=== PATIENT | female | born 1970 | race African-American/Black ===

== ENCOUNTER 2016-05-31 15:17 | Emergency (ER) | payer OTHER ==
[2016-05-31 15:28] VITALS: BMI 26.6
[2016-05-31] MEDS ORDERED: morphine CARPU-JECT 4 MG/1 ML DISP.SYRIN IVPUSH ONE (17:24)
[2016-05-31] MEDS ORDERED: METOCLOPRAMIDE HCL INJECTION 10 MG/2 ML VIAL IVPB ONE (17:24)
[2016-05-31] MEDS ORDERED: METOCLOPRAMIDE HCL INJECTION 10 MG/2 ML VIAL ONE (17:30)
[2016-05-31] MEDS ORDERED: morphine CARPU-JECT 4 MG/1 ML DISP.SYRIN ONE (17:30)
--- NOTE | 2016-05-31 17:42 | PDOC ---
History of Present Illness - History of Present Illness Initial Comments: 05/31/16 18:00 The patient is a 45 year old female with a significant past medical history of asthma, coronary disease, angina, myocardial infarction, COPD, hypertension, diabetes, chronic pain secondary joint pains and surgeries, anxiety and depression who presents to the emergency department for multiple complaints today. The patient states she was recently admitted for anxiety at [facility] for approximately 3 weeks and was discharged on May 23. The patient reports that she has been off her Klonopin medication since July 2015. At that time, the patient states she was admitted for self-harm in the setting of overdose with Seroquel and Klonopin. Since then, her psychiatrist has been hesitant about giving her benzodiazepines. The patient states that since she had left the hospital, she has been having numerous complaints including left sided migraine headaches, generalized abdominal pain, general malaise, and increased anxiety. The patients friend states that the patient has had these symptoms for the last several months since she has been discontinued off her benzodiazepines. However, the patient reports her symptoms are worsening which is why she came to the ER today. She also reports malodorous urine and white discharge from her vagina today. She denies chest pain, shortness of breath, headache and dizziness. She denies fever, diarrhea and constipation. She denies dysuria, frequency, urgency and hematuria. Allergies: levofloxacin, aripiprazole, buspirone Past surgical history: left oophorectomy Social history: reports former tobacco use (2 months) and former illicit drig use (over a year) PCP - Dr. Efe Rich <Xiao Lamb - Last Filed: 05/31/16 18:48> - General History Source: Patient, Friend, Old Records Exam Limitations: No Limitations <Andres Salinas - Last Filed: 05/31/16 22:42> - General Chief Complaint: Pain Stated Complaint: ABD PAIN Time Seen by Provider: 05/31/16 16:49 Past History <Xiao Lamb - Last Filed: 05/31/16 18:48> - Past Medical History Anemia: No Asthma: Yes (Pt is on MDI) Cancer: No Cardiac Disorders: Yes (CAD, [place], [place], TACHYCARDIA) CVA: No COPD: Yes CHF: No Dementia: No Diabetes: Yes (Type II) Dialysis: No GI Disorders: No Disorders: No HTN: Yes Hypercholesterolemia: Yes HIV: No Kidney Stones: No Liver Disease: No Suicide Attempt (Hx): No Seizures: No Thyroid Disease: No - Surgical History Abdominal Surgery: No Appendectomy: No Cardiac Surgery: No Cholecystectomy: No Lung Surgery: No Neurologic Surgery: No Orthopedic Surgery: Yes (right knee replacement 06/27/12 [facility],[employer] [facility]) - Reproductive History PID: No - Psycho/Social/Smoking Cessation Hx Anxiety: No Suicidal Ideation: No Smoking Status: Yes Smoking History: Current some day smoker Have you smoked in the past 12 months: Yes Number of Cigarettes Smoked Daily: 3 If you are a former smoker, when did you quit?: 1 MO AGO Cigars Per Day: 0 Information on smoking cessation initiated: No 'Breaking Loose' booklet given: 09/09/13 Hx Alcohol Use: No Drug/Substance Use Hx: No Substance Use Type: None Hx Substance Use Treatment: Yes <Andres Salinas - Last Filed: 05/31/16 22:42> - Past Medical History Allergies/Adverse Reactions: Allergies Allergy/AdvReac Type Severity Reaction Status Date / Time levofloxacin [From Levaquin] Allergy Intermediate Rash Verified 05/31/16 15:28 aripiprazole [From Abilify] Allergy Mild Itching Verified 05/31/16 15:28 buspirone HCl [From BuSpar] Allergy Mild Itching Verified 05/31/16 15:28 medroxyprogesterone acetate Allergy Mild Itching Verified 05/31/16 15:28 [From Provera] trazodone Allergy Mild Itching Verified 05/31/16 15:28 ziprasidone HCl [From Geodon] Allergy Mild Itching Verified 05/31/16 15:28 ziprasidone mesylate Allergy Mild Itching Verified 05/31/16 15:28 [From Geodon] losartan potassium AdvReac Severe Elevated Verified 05/31/16 15:28 [From Cozaar] Blood Pressure bupropion HCl AdvReac Verified 05/31/16 15:29 [From Wellbutrin] Home Medications: Ambulatory Orders Ibuprofen [Motrin -] 600 mg PO QID #30 tablet 11/19/12 Multivitamin [Multivitamins] 1 each PO DAILY 11/19/12 Nitroglycerin Sublingual [Nitrostat -] 0.4 mg SL PRN PRN #0 tab 09/17/13 Insulin NPL/Insulin Lispro [Humalog Mix 75-25 Pen] 10 unit SQ HS 09/09/13 Insulin NPL/Insulin Lispro [Humalog Mix 75-25 Pen] 25 unit SQ AM 09/09/13 Aspirin Coated [Ecotrin -] 81 mg PO DAILY #30 tablet.ec 09/13/13 Loratadine [Claritin -] 10 mg PO DAILY #30 09/13/13 Pantoprazole Sodium [Protonix -] 40 mg PO DAILY #30 tablet.ec 09/13/13 Albuterol Sulfate Inhaler - [Ventolin HFA Inhaler -] 1 - 2 inh PO QID PRN Carvedilol 12.5 mg PO BID 05/31/16 Diltiazem Cd [Cardizem Cd -] 360 mg PO DAILY 05/31/16 Hydroxyzine Pamoate [Vistaril -] 50 mg PO TID 05/31/16 Metformin HCl [Glucophage] 500 mg PO QID 05/31/16 Oxycodone HCl/Acetaminophen [Percocet 10-325 mg Tablet] 1 each PO DAILY Quetiapine Fumarate [Seroquel -] 200 mg PO TID 05/31/16 Sertraline HCl [Zoloft -] 75 mg PO DAILY 05/31/16 Review of Systems - Review of Systems Able to Perform ROS?: Yes Comments:: 05/31/16 18:09 GENERAL/CONSTITUTIONAL: No fever or chills. No weakness. HEAD, EYES, EARS, NOSE AND THROAT: No change in vision. No ear pain or discharge. No sore throat. CARDIOVASCULAR: No chest pain or shortness of breath. RESPIRATORY: No cough, wheezing, or hemoptysis. GASTROINTESTINAL: (+) abdominal pain, nausea and vomiting. No diarrhea or constipation. GENITOURINARY: No dysuria, frequency, or change in urination. MUSCULOSKELETAL: No joint or muscle swelling or pain. No neck or back pain. SKIN: No rash NEUROLOGIC: (+) headache, No vertigo, loss of consciousness, or change in strength/sensation. ENDOCRINE: No increased thirst. No abnormal weight change. HEMATOLOGIC/LYMPHATIC: No anemia, easy bleeding, or history of blood clots. ALLERGIC/IMMUNOLOGIC: No hives or skin allergy. <Xiao Lamb - Last Filed: 05/31/16 18:48> *Physical Exam - Vital Signs Last Vital Signs Temp Pulse Resp BP Pulse Ox 83 20 155/46 99 05/31/16 15:26 05/31/16 15:26 05/31/16 15:26 05/31/16 15:26 - Physical Exam Comments: 05/31/16 18:10 GENERAL: Awake, alert, and fully oriented, in no acute distress HEAD: No signs of trauma EYES: PERRLA, EOMI, sclera anicteric, conjunctiva clear ENT: Auricles normal inspection, hearing grossly normal, nares patent, oropharynx clear without exudates. Moist mucosa NECK: Normal ROM, supple, no lymphadenopathy, JVD, or masses LUNGS: Breath sounds equal, clear to auscultation bilaterally. No wheezes, and no crackles HEART: Regular rate and rhythm, normal S1 and S2, no murmurs, rubs or gallops ABDOMEN: (+) suprapubic tenderness to palpation. Soft, normoactive bowel sounds. No guarding, no rebound. No masses EXTREMITIES: Normal range of motion, no edema. No clubbing or cyanosis. No cords, erythema, or tenderness NEUROLOGICAL: Cranial nerves II-XII intact. Normal speech, normal gait. Sensation intact in upper and lower extremities. 5/5 motor strength in upper and lower extremities. No pronator drift. Finger to nose intact. Rapid alternations intact. SKIN: Warm, Dry, normal turgor, no rashes or lesions noted. PELVIC: (+) white cottage-like discharge in vaginal vault. <Xiao Lamb - Last Filed: 05/31/16 18:48> - Vital Signs Last Vital Signs Temp Pulse Resp BP Pulse Ox 83 20 155/46 99 05/31/16 15:26 05/31/16 15:26 05/31/16 15:26 05/31/16 15:26 <Andres Salinas - Last Filed: 05/31/16 22:42> Heart Score/ECG Review - ECG Intrepretation Comment:: 05/31/16 18:49 ECG was read by Dr. Salinas at 17:47 Impression: Normal Sinus Rhythm Vent. Rate: 78 bpm NV Interval: 182 ms QTc: 446 ms <Xiao Lamb - Last Filed: 05/31/16 18:48> #1 ECG reviewed & interpreted by me at: 17:45 05/31/16 18:24 NSR 78, no std/dee, normal axis, normal intervals, QTC 446 msec <Andres Salinas - Last Filed: 05/31/16 22:42> ED Treatment Course - LABORATORY CBC & Chemistry Diagram: 05/31/16 17:15 05/31/16 17:15 - Medications Given in the ED: ED Medications Discontinued Medications Generic Name Dose Route Start Last Admin Trade Name Sidra PRN Reason Stop Dose Admin Metoclopramide HCl 10 mg 05/31/16 17:24 05/31/16 17:52 Reglan Injection - IVPB 05/31/16 17:25 10 mg ONCE ONE Administration Morphine Sulfate 4 mg 05/31/16 17:24 05/31/16 17:52 Morphine Injection - IVPUSH 05/31/16 17:25 4 mg ONCE ONE Administration <Xiao Lamb - Last Filed: 05/31/16 18:48> - LABORATORY CBC & Chemistry Diagram: 05/31/16 17:15 05/31/16 19:48 - RADIOLOGY Radiology Studies Ordered: Category Date Time Status ABDOMEN & PELVIS CT WITH CONTR [CT] Stat CT Scan 05/31/16 17:[address] WITHOUT CONTRAST [CT] Stat CT Scan 05/31/16 17:23 Ordered <Andres Salinas - Last Filed: 05/31/16 22:42> Medical Decision Making - Medical Decision Making 05/31/16 17:41 A portion of this note was documented by scribe services under my direction. I have reviewed the details of the note, within reason, and agree with the documentation with the following case summary and management plan written by me. Patient treated in the ED. Nursing notes are reviewed and incorporated into the medical decision-making. Vital signs reviewed. Peripheral IV access obtained by the nurse, laboratory studies are drawn and sent, reviewed and interpreted by myself. Vital Signs Temp Pulse Resp BP Pulse Ox 83 20 155/46 99 05/31/16 15:26 05/31/16 15:26 05/31/16 15:26 05/31/16 15:26 45 year old female with past medical history of asthma, coronary disease, angina , myocardial infarction, COPD, hypertension, diabetes, chronic pain secondary joint pains and surgeries, anxiety and depression presents to the emergency department for multiple complaints. The patient was recently admitted at [facility] for approximately 3 weeks and was discharged on May 23. She was admitted for anxiety. Patient reports that she has been off her Klonopin medication since July 2015. At that time, the patient was admitted for self-harm in the setting of overdose with Seroquel and Klonopin. Since then , her psychiatrist has been hesitant about giving her benzodiazepines. During her admission at [facility], the patient reported he had was not given benzos. Since she had left the hospital, the patient has been having numerous complaints including migrainous-like headaches, generalized abdominal pain, general malaise, anxiety. The patient friend states that the patient has had these symptoms for the last several months since she has been discontinued off her benzodiazepines. However, the patient's symptoms are worsening which is why she came to the ER today. The only new findings is that the patient is having lower abdominal discomfort in the setting of whitish cottage vaginal discharge which she believes is a yeast infection. I suspect that the patient's symptoms are probably likely secondary to anxiety. She admits that the symptoms have resulted since she was discontinued off her benzodiazepines. We'll however, investigate with a CAT scan given the severity of pain in her lower abdomen. The patient may also have a migraine given the headache, however, we'll obtain head CT given the patient reports somewhat different nature. We'll obtain labs and treat symptoms. We'll treat whitish vaginal discharge with fluconazole. Ultimately, the workup is negative, I suspect that this is likely anxiety driven. We'll discuss option treatments for her. 05/31/16 22:40 CAT scan of the head is unremarkable. CT scan resulted. Ileus but no other acute findings. CBC, BMP 05/31/16 17:15 05/31/16 19:48 CMP Sodium 140 mmol/L (136-145) 05/31/16 19:48 Potassium 4.0 mmol/L (3.5-5.1) 05/31/16 19:48 Chloride 101 mmol/L (98-107) 05/31/16 19:48 Carbon Dioxide 29 mmol/L (21-32) 05/31/16 19:48 Anion Gap 10 (8-16) 05/31/16 19:48 BUN 12 mg/dL (7-18) D 05/31/16 19:48 Creatinine 0.7 mg/dL (0.55-1.02) 05/31/16 19:48 Creat Clearance w eGFR > 60 (>60) 05/31/16 19:48 Random Glucose 138 mg/dL (74-106) H D 05/31/16 19:48 Calcium 8.7 mg/dL (8.5-10.1) 05/31/16 19:48 Total Bilirubin 0.2 mg/dL (0.2-1.0) 05/31/16 19:48 AST 11 U/L (15-37) L D 05/31/16 19:48 ALT 24 U/L (12-78) 05/31/16 19:48 Alkaline Phosphatase 84 U/L (45-117) 05/31/16 19:48 Creatine Kinase 55 IU/L (26-192) 05/31/16 19:48 Troponin I < 0.02 ng/ml (0.00-0.05) 05/31/16 19:48 Total Protein 7.6 g/dl (6.4-8.2) 05/31/16 19:48 Albumin 3.7 g/dl (3.4-5.0) 05/31/16 19:48 Lipase 57 U/L (73-393) L 05/31/16 19:48 Urine Test Results Urine Color Ltyellow 05/31/16 17:15 Urine Appearance Clear 05/31/16 17:15 Urine pH 5.0 (5.0-8.0) 05/31/16 17:15 Ur Specific [place] 1.021 (1.001-1.035) 05/31/16 17:15 Urine Protein Negative (NEGATIVE) 05/31/16 17:15 Urine Glucose (UA) 2+ (NEGATIVE) H 05/31/16 17:15 Urine Ketones Negative (NEGATIVE) 05/31/16 17:15 Urine Blood Negative (NEGATIVE) 05/31/16 17:15 Urine Nitrite Negative (NEGATIVE) 05/31/16 17:15 Urine Bilirubin Negative (NEGATIVE) 05/31/16 17:15 Ur Leukocyte Esterase Trace (NEGATIVE) H 05/31/16 17:15 Urine RBC 1 /hpf (0-3) 05/31/16 17:15 Urine WBC 3 /hpf (3-5) 05/31/16 17:15 Ur Epithelial Cells Rare /hpf (FEW) 05/31/16 17:15 Urine Mucus Rare 05/31/16 17:15 Labs and UA reviewed. I had reassurred the patient and the patient reports with the reassurance that she feels completely resolved. She has no symptoms and feels quite relieved. Again, I suspect that this was anxiety driven. I will discharge the patient and have her follow up with psychiatry. The patient is satisfied with her care and feels well to go home. I discussed the physical exam findings, ancillary test results and final diagnoses with the patient. I answered all of the patient's questions. The patient was satisfied with the care received and felt comfortable with the discharge plan and treatment plan. The patient will call their primary care physician within 24 hours to arrange follow-up and will return to the Emergency Department with any new, persistant or worsening symptoms. <Andres Salinas - Last Filed: 05/31/16 22:42> *DC/Admit/Observation/Transfer - Attestations Scribe Attestion: 05/31/16 18:12 Documentation prepared by Xiao Lamb, acting as medical physiologist for Andres Salinas MD, MD <Xiao Lamb - Last Filed: 05/31/16 18:48> - Discharge Dispostion Admit: No <Andres Salinas - Last Filed: 05/31/16 22:42> Diagnosis at time of Disposition: Anxiety - Discharge Dispostion Disposition: HOME Condition at time of disposition: Good - Referrals Referrals: Efe Rich MD [Primary Care Provider] - Antonette Presley MD [Staff Physician] - - Patient Instructions Printed Discharge Instructions: DI for Anxiety -- Adult, Anxiety and Panic Attacks (Alternative Therapy), Generalized Anxiety Disorder, Yoga May Help Reduce Anxiety and Stress Additional Instructions: Your workup here in the ED is unremarkable. Please make an appointment with a psychiatrist. Call and schedule an appointment. It was a pleasure meeting you, please feel better!
[2016-05-31 17:57] LABS: BASOPHIL 1.3 % (0-2.0); MCH 27.6 pg (25.7-33.7); MCHC 32.2 g/dl (32.0-36.0); MEAN CELL VOLUME 85.6 fl (80-96); MEAN PLT VOLUME 7.3 fl (7.5-11.1); NEUTROPHILS 47.4 % (42.8-82.8); PLATELET COUNT 434 K/MM3 (134-434); RDW 13.2 % (11.6-15.6); WHITE BLOOD COUNT 11.9 K/mm3 (4.0-10.0)
[2016-05-31 18:10] LABS: INR 1.14 (0.82-1.09); PROTHROMBIN TIME (PATIENT) 12.6 SEC (9.98-11.88); URINE APPEARANCE CLEAR; URINE BILIRUBIN NEGATIVE (NEGATIVE); URINE BLOOD NEGATIVE (NEGATIVE); URINE COLOR LTYELLOW; URINE GLUCOSE (UA) 2+ (NEGATIVE); URINE KETONE NEGATIVE (NEGATIVE); URINE NITRITE NEGATIVE (NEGATIVE); URINE PROTEIN NEGATIVE (NEGATIVE); URINE UROBILINOGEN NEGATIVE E.U./dl (0.2-1.0)
[2016-05-31 18:11] LABS: URINE LEUK ESTERASE TRACE (NEGATIVE)
[2016-05-31 18:13] LABS: ACTIVATED PTT 34.6 SECONDS (26.9-34.4); URINE HYALINE CAST 3 /lpf; URINE MUCUS RARE; URINE RBC 1 /hpf (0-3); URINE WBC 3 /hpf (3-5)
[2016-05-31] MEDS ORDERED: FLUCONAZOLE 50 MG TABLET PO ONE (19:16)
[2016-05-31] MEDS ORDERED: FLUCONAZOLE 100 MG TABLET (UD) ONE (19:42)
[2016-05-31 20:03] VITALS: BP 140/70; PULSE 68
[2016-05-31 20:22] LABS: ALBUMIN 3.7 g/dl (3.4-5.0); ANION GAP 10 (8-16); BILIRUBIN,TOTAL 0.2 mg/dL (0.2-1.0); CALCIUM 8.7 mg/dL (8.5-10.1); CO2 29 mmol/L (21-32); CREATININE 0.7 mg/dL (0.55-1.02); GLUCOSE,RANDOM 138 mg/dL (74-106); SGOT/AST 11 U/L (15-37); SGPT/ALT 24 U/L (12-78); TOT PROT 7.6 g/dl (6.4-8.2)
[2016-05-31 20:25] LABS: ALK PHOS 84 U/L (45-117); TROPONIN I < 0.02 ng/ml (0.00-0.05)
--- NOTE | 2016-06-01 16:33 | EKG ---
Test Reason : Blood Pressure : / mmHG Vent. Rate : 078 BPM Atrial Rate : 078 BPM P-R Int : 182 ms QRS Dur : 080 ms QT Int : 392 ms P-R-T Axes : 046 061 060 degrees QTc Int : 446 ms NORMAL SINUS RHYTHM NORMAL ECG NO PREVIOUS ECGS AVAILABLE Confirmed by ELISABETH HECK, DINORA ([id number]) on 06/01/2016 4:32:56 PM Referred By: Confirmed By:DINORA BARBER MD
== END 2016-05-31 22:48 | disposition home or self-care (01) ==
LOC: JER 15:17
PROC: 3E033NZ Introduction of Analgesics, Hypnotics, Sedatives into Peripheral Vein, Percutaneous Approach (ICD-10-PCS; principal; 2016-05-31)
PROC: 3E033GC Introduction of Other Therapeutic Substance into Peripheral Vein, Percutaneous Approach (ICD-10-PCS; 2016-05-31)
DX: F41.9 Anxiety disorder, unspecified (principal); I25.119 Atherosclerotic heart disease of native coronary artery with unspecified angina pectoris; I10 Essential (primary) hypertension; F17.210 Nicotine dependence, cigarettes, uncomplicated; I25.2 Old myocardial infarction; E11.9 Type 2 diabetes mellitus without complications; Z79.4 Long term (current) use of insulin; E78.00 Pure hypercholesterolemia, unspecified; J44.9 Chronic obstructive pulmonary disease, unspecified
CPT/HCPCS: 36415; 70450-TC; 74177-TC; 80053; 81003; 81015; 82550; 83690; 84484; 84703; 85025; 85610; 85730; 87086; 93005; 93010; 96374; 96375; 99283-25

== ENCOUNTER 2016-07-07 13:39 | Emergency (ER) | payer OTHER ==
[2016-07-07 13:53] VITALS: BP 133/84; PULSE 100; TEMP 98.8; BMI 25.1
[2016-07-07] MEDS ORDERED: morphine CARPU-JECT 2 MG/1 ML DISP.SYRIN IVPUSH ONE (17:24)
[2016-07-07] MEDS ORDERED: SODIUM CHLORIDE 1,000 ML IV STA (17:24)
[2016-07-07] MEDS ORDERED: morphine CARPU-JECT 2 MG/1 ML DISP.SYRIN ONE (17:30)
[2016-07-07 17:54] LABS: BASOPHIL 0.9 % (0-2.0); EOSINOPHIL 2.3 % (0-4.5); MCH 28.6 pg (25.7-33.7); MCHC 34.2 g/dl (32.0-36.0); MEAN CELL VOLUME 83.6 fl (80-96); MEAN PLT VOLUME 6.8 fl (7.5-11.1); NEUTROPHILS 65.3 % (42.8-82.8); PLATELET COUNT 528 K/MM3 (134-434); RDW 14.4 % (11.6-15.6); WHITE BLOOD COUNT 9.6 K/mm3 (4.0-10.0)
[2016-07-07 17:57] LABS: URINE APPEARANCE CLEAR; URINE BILIRUBIN NEGATIVE (NEGATIVE); URINE BLOOD NEGATIVE (NEGATIVE); URINE COLOR LTYELLOW; URINE GLUCOSE (UA) 3+ (NEGATIVE); URINE KETONE NEGATIVE (NEGATIVE); URINE LEUK ESTERASE NEGATIVE (NEGATIVE); URINE NITRITE NEGATIVE (NEGATIVE); URINE PROTEIN NEGATIVE (NEGATIVE); URINE UROBILINOGEN NEGATIVE E.U./dl (0.2-1.0)
[2016-07-07 18:31] LABS: ALBUMIN 3.5 g/dl (3.4-5.0); ALK PHOS 163 U/L (45-117); ANION GAP 8 (8-16); BILIRUBIN,TOTAL 0.3 mg/dL (0.2-1.0); CALCIUM 9.3 mg/dL (8.5-10.1); CO2 28 mmol/L (21-32); CREATININE 0.8 mg/dL (0.55-1.02); GLUCOSE,RANDOM 275 mg/dL (74-106); SGOT/AST 11 U/L (15-37); SGPT/ALT 13 U/L (12-78); TOT PROT 8.1 g/dl (6.4-8.2)
--- NOTE | 2016-07-07 18:46 | PDOC ---
History of Present Illness - General Chief Complaint: Pain, Acute Stated Complaint: PAIN Time Seen by Provider: 07/07/16 16:54 - History of Present Illness Initial Comments: 07/07/16 18:29 Ms. Huynh is a 45-year-old female t medical history of hemorrhagic cyst L oopherectomy, diabetes, and COPD presenting with left lower quadrant and right lower quadrant abdominal pain Patient states that the pain began 3 days ago and consistently got worse. Today she could no longer take the pain. Her pain right now is currently an 8 out of 10. She describes the pain as sharp and cramping. Patient has oxycodone. She says she has had no relief after taking 5 mg this morning. PT is worried she has another cyst Patient denies fevers chills dysuria frequency or hematuria. Denies recent illness, recent travel chest pain palpitations shortness of breath nausea vomiting or diarrhea. Past History - Past Medical History Allergies/Adverse Reactions: Allergies Allergy/AdvReac Type Severity Reaction Status Date / Time levofloxacin [From Levaquin] Allergy Intermediate Rash Verified 07/07/16 13:49 aripiprazole [From Abilify] Allergy Mild Itching Verified 07/07/16 13:49 buspirone HCl [From BuSpar] Allergy Mild Itching Verified 07/07/16 13:49 medroxyprogesterone acetate Allergy Mild Itching Verified 07/07/16 13:49 [From Provera] trazodone Allergy Mild Itching Verified 07/07/16 13:49 ziprasidone HCl [From Geodon] Allergy Mild Itching Verified 07/07/16 13:49 ziprasidone mesylate Allergy Mild Itching Verified 07/07/16 13:49 [From Geodon] losartan potassium AdvReac Severe Elevated Verified 07/07/16 13:49 [From Cozaar] Blood Pressure bupropion HCl AdvReac Verified 07/07/16 13:49 [From Wellbutrin] Home Medications: Ambulatory Orders Multivitamin [Multivitamins] 1 each PO DAILY 11/19/12 Nitroglycerin Sublingual [Nitrostat -] 0.4 mg SL PRN PRN #0 tab 02/11/13 Insulin NPL/Insulin Lispro [Humalog Mix 75-25 Pen] 15 unit SQ HS 09/09/13 Insulin NPL/Insulin Lispro [Humalog Mix 75-25 Pen] 30 unit SQ AM 09/09/13 Aspirin Coated [Ecotrin -] 81 mg PO DAILY #30 tablet.ec 09/13/13 Loratadine [Claritin -] 10 mg PO DAILY #30 09/13/13 Pantoprazole Sodium [Protonix -] 40 mg PO DAILY #30 tablet.ec 09/13/13 Albuterol Sulfate Inhaler - [Ventolin HFA Inhaler -] 1 - 2 inh PO QID PRN Carvedilol 12.5 mg PO BID 05/31/16 Diltiazem Cd [Cardizem Cd -] 360 mg PO DAILY 05/31/16 Hydroxyzine Pamoate [Vistaril -] 50 mg PO TID 05/31/16 Quetiapine Fumarate [Seroquel -] 200 mg PO TID 05/31/16 Sertraline HCl [Zoloft -] 100 mg PO DAILY 05/31/16 Oxycodone HCl [Roxicodone -] 10 mg PO TID tablet MDD 3 06/14/16 Quetiapine Fumarate [Seroquel] 200 tab PO TID 07/07/16 Anemia: No Asthma: Yes (Pt is on MDI) Cancer: No Cardiac Disorders: Yes (CAD, ANGIN[place], [place], TACHYCARDIA) CVA: No COPD: Yes CHF: No Dementia: No Diabetes: Yes (Type II) Dialysis: No GI Disorders: No Disorders: No HTN: Yes Hypercholesterolemia: Yes HIV: No Kidney Stones: No Liver Disease: No Suicide Attempt (Hx): No Seizures: No Thyroid Disease: No Other medical history: hemmoragic ovarian cyst - Surgical History Abdominal Surgery: No Appendectomy: No Cardiac Surgery: No Cholecystectomy: No Lung Surgery: No Neurologic Surgery: No Orthopedic Surgery: Yes (right knee replacement 06/27/12 [facility],[employer] [facility] [facility]) - Reproductive History PID: No - Immunization History Immunization Up to Date: Yes (no flu) - Psycho/Social/Smoking Cessation Hx Anxiety: No Suicidal Ideation: No Smoking Status: Yes Smoking History: Former smoker Have you smoked in the past 12 months: Yes Number of Cigarettes Smoked Daily: 20 If you are a former smoker, when did you quit?: 1 MO AGO Cigars Per Day: 0 Information on smoking cessation initiated: No 'Breaking Loose' booklet given: 09/09/13 Hx Alcohol Use: No Drug/Substance Use Hx: No Substance Use Type: None Hx Substance Use Treatment: Yes *Physical Exam - Vital Signs Last Vital Signs Temp Pulse Resp BP Pulse Ox 98.8 F 100 H 20 133/84 98 07/07/16 13:50 07/07/16 13:50 07/07/16 13:50 07/07/16 13:50 07/07/16 13:50 - Physical Exam Comments: 07/07/16 18:45 GENERAL: Well developed, well nourished. Awake and alert. Pt is in moderate distress. Cannot lie still HEENT: Normocephalic, atraumatic. PERRLA, EOMI. No conjunctival pallor. Sclera are non- icteric. Moist mucous membranes. Oropharynx is clear. NECK: Supple. Full ROM. No JVD. Carotid pulses 2+ and symmetric, without bruits. No thyromegaly. No lymphadenopathy. CARDIOVASCULAR: Regular rate and rhythm. No murmurs, rubs, or gallops. Distal pulses are 2+ and symmetric. PULMONARY: No evidence of respiratory distress. Lungs clear to auscultation bilaterally. No wheezing, rales or rhonchi. ABDOMINAL: (+) LLQ and RRQ tenderness to light and deep palpation, (+) guarding. Soft. Non- distended. No rebound. (-) psoas, obturator sign. No organomegaly. Normoactive bowel sounds. MUSCULOSKELETAL Normal range of motion at all joints. No bony deformities or tenderness. (+) CVA tenderness. EXTREMITIES: No cyanosis. No clubbing. No edema. No calf tenderness. SKIN: Warm and dry. Normal capillary refill. No rashes. No jaundice. NEUROLOGICAL: Alert, awake, appropriate. Cranial nerves 2-12 intact. No deficits to light touch and temperature in face, upper extremities and lower extremities. No motor deficits in the in face, upper extremities and lower extremities. Normoreflexic in the upper and lower extremities. Normal speech. Toes are down- going bilaterally. Gait is normal without ataxia. PSYCHIATRIC: Cooperative. Good eye contact. Appropriate mood and affect. ED Treatment Course - LABORATORY CBC & Chemistry Diagram: 07/07/16 17:29 07/07/16 17:29 - ADDITIONAL ORDERS Additional order review: Laboratory Results 07/07/16 17:29 Urine Color Ltyellow Urine Appearance Clear Urine pH 5.0 D Ur Specific [place] 1.025 Urine Protein Negative Urine Glucose (UA) 3+ H Urine Ketones Negative Urine Blood Negative Urine Nitrite Negative Urine Bilirubin Negative Urine Urobilinogen Negative Ur Leukocyte Esterase Negative Urine HCG, Qual Negative 07/07/16 17:29 RBC 4.12 D MCV 83.6 MCHC 34.2 RDW 14.4 MPV 6.8 L Neutrophils % 65.3 Lymphocytes % 26.6 Monocytes % 4.9 Eosinophils % 2.3 Basophils % 0.9 - RADIOLOGY Radiology Studies Ordered: Category Date Time Status ABDOMEN & PELVIS CT W/O CONTR [CT] Stat CT Scan 07/07/16 17:21 Taken - Medications Given in the ED: ED Medications Discontinued Medications Generic Name Dose Route Start Last Admin Trade Name Freq PRN Reason Stop Dose Admin Sodium Chloride 1,000 mls @ 1,000 mls/hr 07/07/16 17:24 07/07/16 17:48 Normal Saline - IV 07/07/16 18:23 1,000 mls/hr ASDIR STA Administration Morphine Sulfate 2 mg 07/07/16 17:24 07/07/16 17:48 Morphine Injection - IVPUSH 07/07/16 17:25 2 mg ONCE ONE Administration Medical Decision Making - Medical Decision Making 07/07/16 18:51 patient is a 45 y/o female with significant PMH who presents with right lower quadrant pain and left lower quadrant pain. Patient states that her pain is an 8 out of 10. Given the location of the pain consider pyelonephritis and UTI kidney stones and ovarian cyst. We will medicate for pain. Also give hydration.We'll send out for CAT scan. Less likely appendicitis given his exam findings. 1. CBC, CMP, UA, Urine 2. Morphine for pain control 3. CT Abdomen pelvis 4. Will re-evaluate. 07/07/16 19:25 Sign out given to Marielos FREEMAN. Discussed the case and what is still needed. Pelvic exam was unable to be performed as pt was not placed in proper room. Waiting on CT exam. *DC/Admit/Observation/Transfer Diagnosis at time of Disposition: Abdominal pain Qualifiers: Abdominal location: lower abdomen, unspecified Qualified Code(s): R10.30 - Lower abdominal pain, unspecified Vaginitis Qualifiers: Chronicity: acute Qualified Code(s): N76.0 - Acute vaginitis - Referrals Referrals: Corwin Whipple MD [Staff Physician] - Efe Rich MD [Primary Care Provider] - - Patient Instructions Printed Discharge Instructions: DI for Vaginal Yeast Infection, DI for Abdominal Pain-Adult Additional Instructions: -You were seen today for abdominal pain. -Your lab work is normal except for high sugar (275). Continue your prescribed medication and follow your diabetic diet. -Your CT scan was normal. Your ultrasound showed a uterine fibroid, which may explain your pain. -You were treated with a one-time dose of diflucan for yeast infection. 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 Copies of today's tests are enclosed. -Return here for worsening pain or any other concerning symptoms.
[2016-07-07] MEDS ORDERED: HYDROmorphone HCL CARPU-JECT 1 MG/1 ML DISP.SYRIN IVPUSH ONE ×2 (19:17→21:29)
--- NOTE | 2016-07-07 19:26 | PDOC ---
*Physical Exam - Vital Signs Last Vital Signs Temp Pulse Resp BP Pulse Ox 98.8 F 100 H 20 133/84 98 07/07/16 13:50 07/07/16 13:50 07/07/16 13:50 07/07/16 13:50 07/07/16 13:50 ED Treatment Course - LABORATORY CBC & Chemistry Diagram: 07/07/16 17:29 07/07/16 17:29 - ADDITIONAL ORDERS Additional order review: Laboratory Results 07/07/16 07/07/16 17:29 17:29 Sodium 133 L Potassium 4.7 Chloride 97 L Carbon Dioxide 28 Anion Gap 8 BUN 9 Creatinine 0.8 Creat Clearance w eGFR > 60 Random Glucose 275 H Calcium 9.3 Total Bilirubin 0.3 AST 11 L D ALT 13 D Alkaline Phosphatase 163 H D Total Protein 8.1 Albumin 3.5 D Urine Color Ltyellow Urine Appearance Clear Urine pH 5.0 D Ur Specific [place] 1.025 Urine Protein Negative Urine Glucose (UA) 3+ H Urine Ketones Negative Urine Blood Negative Urine Nitrite Negative Urine Bilirubin Negative Urine Urobilinogen Negative Ur Leukocyte Esterase Negative Urine HCG, Qual Negative 07/07/16 17:29 RBC 4.12 D MCV 83.6 MCHC 34.2 RDW 14.4 MPV 6.8 L Neutrophils % 65.3 Lymphocytes % 26.6 Monocytes % 4.9 Eosinophils % 2.3 Basophils % 0.9 - RADIOLOGY Radiology Studies Ordered: Category Date Time Status TRANSVAGINAL ULTRASOUND US [US] Stat Ultrasound 07/07/16 19:17 Ordered - Medications Given in the ED: ED Medications Discontinued Medications Generic Name Dose Route Start Last Admin Trade Name Freq PRN Reason Stop Dose Admin Sodium Chloride 1,000 mls @ 1,000 mls/hr 07/07/16 17:24 07/07/16 17:48 Normal Saline - IV 07/07/16 18:23 1,000 mls/hr ASDIR STA Administration Morphine Sulfate 2 mg 07/07/16 17:24 07/07/16 17:48 Morphine Injection - IVPUSH 07/07/16 17:25 2 mg ONCE ONE Administration Medical Decision Making - Medical Decision Making 07/07/16 19:26 Signout received from CHRIS Downing. Briefly, this is a 45 year old female with a history of hemorrhagic ovarian cyst s/p L oopherectomy, IDDM, and COPD who presented to the ED with LLQ pain which began 3 days ago and became acutely worse today. The pain has been unrelieved by oxycodone. She has received morphine 2mg without relief. CT scan has been done and results are pending. Labs are notable only for blood glucose 275. Plan: -Pelvic exam -Transvaginal u/s -Hydromorphone 1mg now -Reassess 07/07/16 20:32 CTAP demonstrates no acute pathology. 07/07/16 21:20 Ultrasound reviewed: right ovary appears normal. Uterine fibroid noted. Motion Study Technician exam: Normal external exam. Moderate thick, white, non-malodorous discharge. No CMT or adnexal tenderness. GC/CT and genital cultures sent. Will treat for vaginal candidiasis. Repeat abdominal exam: soft and non-tender. Patient feeling well and agrees to discharge with civil structural engineer followup. She sees Dr. Whipple. Copies of today's tests were provided. *DC/Admit/Observation/Transfer Diagnosis at time of Disposition: Abdominal pain Qualifiers: Abdominal location: lower abdomen, unspecified Qualified Code(s): R10.30 - Lower abdominal pain, unspecified Vaginitis Qualifiers: Chronicity: acute Qualified Code(s): N76.0 - Acute vaginitis - Discharge Dispostion Admit: No - Referrals Referrals: Efe Rich MD [Primary Care Provider] - Corwin Whipple MD [Staff Physician] - - Patient Instructions Printed Discharge Instructions: DI for Vaginal Yeast Infection, DI for Abdominal Pain-Adult Additional Instructions: -You were seen today for abdominal pain. -Your lab work is normal except for high sugar (275). Continue your prescribed medication and follow your diabetic diet. -Your CT scan was normal. Your ultrasound showed a uterine fibroid, which may explain your pain. -You were treated with a one-time dose of diflucan for yeast infection. -Please follow up with your attendant campground for further evaluation. Copies of today's tests are enclosed. -Return here for worsening pain or any other concerning symptoms.
[2016-07-07] MEDS ORDERED: HYDROmorphone HCL CARPU-JECT 1 MG/1 ML DISP.SYRIN ONE ×2 (19:35→21:39)
[2016-07-07] MEDS ORDERED: FLUCONAZOLE 100 MG TABLET (UD) PO ONE (21:29)
[2016-07-07] MEDS ORDERED: FLUCONAZOLE 100 MG TABLET (UD) ONE (21:40)
== END 2016-07-07 23:16 | disposition home or self-care (01) ==
LOC: JER 13:39
PROC: 3E033NZ Introduction of Analgesics, Hypnotics, Sedatives into Peripheral Vein, Percutaneous Approach (ICD-10-PCS; principal; 2016-07-07)
PROC: 3E0337Z Introduction of Electrolytic and Water Balance Substance into Peripheral Vein, Percutaneous Approach (ICD-10-PCS; 2016-07-07)
DX: R10.30 Lower abdominal pain, unspecified (principal); N76.0 Acute vaginitis; J45.909 Unspecified asthma, uncomplicated; I25.10 Atherosclerotic heart disease of native coronary artery without angina pectoris; I25.2 Old myocardial infarction; J44.9 Chronic obstructive pulmonary disease, unspecified; E78.00 Pure hypercholesterolemia, unspecified; I10 Essential (primary) hypertension; Z79.4 Long term (current) use of insulin
CPT/HCPCS: 36415; 74176-TC; 76830-TC; 80053; 81003; 84703; 85025; 87070; 87081; 87205; 87491; 87591; 96361; 96374; 96375; 96376; 99283-25

== ENCOUNTER 2016-12-28 17:34 | Inpatient (IN) | payer OTHER ==
[2016-12-28] MEDS ORDERED: morphine CARPU-JECT 2 MG/1 ML DISP.SYRIN IVPUSH ONE (19:38)
--- NOTE | 2016-12-28 19:42 | PDOC ---
History of Present Illness <Montse Padilla - Last Filed: 12/29/16 06:37> - History of Present Illness Initial Comments: 12/29/16 06:35 Ms. Huynh is a 46-year-old female t medical history of hemorrhagic cyst L oopherectomy, diabetes, and COPD presenting with epigastric and right sided pain since yesterday. Patient is also slightly nauseated.No vomiting, dysuria, diarrhea. <Ezequiel Fuchs - Last Filed: 12/29/16 07:07> - General Chief Complaint: Pain Stated Complaint: PAIN Time Seen by Provider: 12/28/16 19:18 Past History <Montse Padilla - Last Filed: 12/29/16 06:37> - Past Medical History Anemia: No Asthma: Yes (Pt is on MDI) Cancer: No Cardiac Disorders: Yes (CAD, ANGINA, [place], TACHYCARDIA) CVA: No COPD: Yes CHF: No Dementia: No Diabetes: Yes (Type II) Dialysis: No GI Disorders: No Disorders: No HTN: Yes Hypercholesterolemia: Yes HIV: No Kidney Stones: No Liver Disease: No Psychiatric Problems: Yes (bipolar) Suicide Attempt (Hx): No Seizures: No Thyroid Disease: No - Surgical History Abdominal Surgery: No Appendectomy: No Cardiac Surgery: No Cholecystectomy: No Lung Surgery: No Neurologic Surgery: No Orthopedic Surgery: Yes (right knee replacement 06/27/12 [facility]) - Reproductive History PID: No - Immunization History Immunization Up to Date: Yes (no flu) - Psycho/Social/Smoking Cessation Hx Anxiety: No Suicidal Ideation: No Smoking Status: Yes Smoking History: Current every day smoker Have you smoked in the past 12 months: Yes Number of Cigarettes Smoked Daily: 8 If you are a former smoker, when did you quit?: 1 MO AGO Cigars Per Day: 0 Information on smoking cessation initiated: No 'Breaking Loose' booklet given: 09/09/13 Hx Alcohol Use: No (denies) Drug/Substance Use Hx: No Substance Use Type: None Hx Substance Use Treatment: Yes <Ezequiel Fuchs - Last Filed: 12/29/16 07:07> - Past Medical History Allergies/Adverse Reactions: Allergies Allergy/AdvReac Type Severity Reaction Status Date / Time levofloxacin [From Levaquin] Allergy Intermediate Rash Verified 12/28/16 17:47 aripiprazole [From Abilify] Allergy Mild Itching Verified 12/28/16 17:47 buspirone HCl [From BuSpar] Allergy Mild Itching Verified 12/28/16 17:47 medroxyprogesterone acetate Allergy Mild Itching Verified 12/28/16 17:47 [From Provera] trazodone Allergy Mild Itching Verified 12/28/16 17:47 ziprasidone HCl [From Geodon] Allergy Mild Itching Verified 12/28/16 17:47 ziprasidone mesylate Allergy Mild Itching Verified 12/28/16 17:47 [From Geodon] losartan potassium AdvReac Severe Elevated Verified 12/28/16 17:47 [From Cozaar] Blood Pressure bupropion HCl AdvReac Verified 12/28/16 17:47 [From Wellbutrin] Home Medications: Ambulatory Orders Multivitamin [Multivitamins] 1 each PO DAILY 11/19/12 Nitroglycerin Sublingual [Nitrostat -] 0.4 mg SL PRN PRN #0 tab 02/11/13 Insulin NPL/Insulin Lispro [Humalog Mix 75-25 Pen] 15 unit SQ HS 09/09/13 Insulin NPL/Insulin Lispro [Humalog Mix 75-25 Pen] 30 unit SQ AM 09/09/13 Aspirin Coated [Ecotrin -] 81 mg PO DAILY #30 tablet.ec 09/13/13 Loratadine [Claritin -] 10 mg PO DAILY #30 09/13/13 Pantoprazole Sodium [Protonix -] 40 mg PO DAILY #30 tablet.ec 09/13/13 Albuterol Sulfate Inhaler - [Ventolin HFA Inhaler -] 1 - 2 inh PO QID PRN Carvedilol 12.5 mg PO BID 05/31/16 Diltiazem Cd [Cardizem Cd -] 360 mg PO DAILY 05/31/16 Oxycodone HCl [Roxicodone -] 10 mg PO TID tablet MDD 3 06/14/16 Quetiapine Fumarate [Seroquel] 200 tab PO TID 07/07/16 Diazepam [Valium] 10 mg PO HS 12/28/16 Venlafaxine HCl [Effexor -] 0 mg PO TID 12/28/16 *Physical Exam - Vital Signs Last Vital Signs Temp Pulse Resp BP Pulse Ox 97.9 F 89 19 135/77 98 12/29/16 06:16 12/29/16 06:16 12/29/16 06:16 12/29/16 06:16 12/29/16 06:16 <Montse Padilla - Last Filed: 12/29/16 06:37> - Vital Signs Last Vital Signs Temp Pulse Resp BP Pulse Ox 99.3 F 96 H 18 128/71 99 12/28/16 17:45 12/28/16 17:45 12/28/16 17:45 12/28/16 17:45 12/28/16 17:45 <Ezequiel Fuchs - Last Filed: 12/29/16 07:07> ED Treatment Course - LABORATORY CBC & Chemistry Diagram: 12/28/16 19:48 12/28/16 19:48 - ADDITIONAL ORDERS Additional order review: Laboratory Results 12/28/16 12/28/16 12/28/16 21:57 21:56 19:48 Sodium 136 Potassium 3.1 L D Chloride 98 Carbon Dioxide 31 Anion Gap 7 L BUN 7 D Creatinine 0.7 Creat Clearance w eGFR > 60 Random Glucose 195 H D Calcium 8.5 Total Bilirubin 0.2 D Direct Bilirubin < 0.1 AST 11 L ALT 20 D Alkaline Phosphatase 80 D Ammonia 21.87 Total Protein 6.7 Albumin 3.3 L Lipase Alcohol, Quantitative < 5.0 12/28/16 19:45 Sodium Potassium Chloride Carbon Dioxide Anion Gap BUN Creatinine Creat Clearance w eGFR Random Glucose Calcium Total Bilirubin Direct Bilirubin AST ALT Alkaline Phosphatase Ammonia Total Protein Albumin Lipase 377 Alcohol, Quantitative 12/28/16 19:48 RBC 4.07 MCV 88.8 MCHC 34.1 RDW 13.3 MPV 8.9 D Neutrophils % 46.4 D Lymphocytes % 42.7 H D Monocytes % 8.3 Eosinophils % 2.4 Basophils % 0.2 - Medications Given in the ED: ED Medications Discontinued Medications Generic Name Dose Route Start Last Admin Trade Name Freq PRN Reason Stop Dose Admin Diazepam 5 mg 12/28/16 22:23 12/28/16 22:55 Valium - PO 12/28/16 22:24 5 mg ONCE ONE Administration Morphine Sulfate 2 mg 12/28/16 19:38 12/28/16 19:55 Morphine Injection - IVPUSH 12/28/16 19:39 2 mg ONCE ONE Administration Morphine Sulfate 2 mg 12/29/16 00:10 12/29/16 01:00 Morphine Injection - IVPUSH 12/29/16 00:11 2 mg ONCE ONE Administration Potassium Chloride 40 meq 12/28/16 22:18 12/28/16 22:50 K-Dur - PO 12/28/16 22:19 40 meq ONCE ONE Administration Quetiapine Fumarate 100 mg 12/28/16 22:23 12/28/16 22:50 Seroquel - PO 12/28/16 22:24 100 mg ONCE ONE Administration Venlafaxine HCl 50 mg 12/28/16 22:45 12/28/16 23:21 Effexor - PO 12/28/16 22:46 50 mg ONCE ONE Administration <Montse Padilla - Last Filed: 12/29/16 06:37> - LABORATORY CBC & Chemistry Diagram: 12/28/16 19:48 12/28/16 19:48 <Ezequiel Fuchs - Last Filed: 12/29/16 07:07> Medical Decision Making - Medical Decision Making 12/29/16 06:37 Dr. Boyce was paged and notified via phone service. <Montse Padilla - Last Filed: 12/29/16 06:37> - Medical Decision Making 12/29/16 07:05 Ms. Huynh is a 46-year-old female t medical history of hemorrhagic cyst L oopherectomy, diabetes, and COPD presenting with epigastric and right sided pain since yesterday. Patient is also slightly nauseated.No vomiting, dysuria, diarrhea. Gallbladder u/s: Neg. Ct abd w/contrast and PO: Acute pancreatitis and duodenitis. Patient to be admitted on fluids and npo Signed out to Dr. Shah.. 12/29/16 07:04 <Ezequiel Fuchs - Last Filed: 12/29/16 07:07> *DC/Admit/Observation/Transfer <Montse Padilla - Last Filed: 12/29/16 06:37> <Ezequiel Fuchs - Last Filed: 12/29/16 07:07> Diagnosis at time of Disposition: Duodenitis Acute pancreatitis Qualifiers: Pancreatitis type: other Acute pancreatitis complication: uninfected necrosis Qualified Code(s): K85.81 - Other acute pancreatitis with uninfected necrosis - Discharge Dispostion Condition at time of disposition: Improved - Referrals Referrals: Efe Rich MD [Primary Care Provider] -
[2016-12-28] MEDS ORDERED: morphine CARPU-JECT 4 MG/1 ML DISP.SYRIN ONE (19:51)
[2016-12-28 20:03] LABS: BASOPHIL 0.2 % (0-2.0); EOSINOPHIL 2.4 % (0-4.5); MCH 30.2 pg (25.7-33.7); MCHC 34.1 g/dl (32.0-36.0); MEAN CELL VOLUME 88.8 fl (80-96); MEAN PLT VOLUME 8.9 fl (7.5-11.1); NEUTROPHILS 46.4 % (42.8-82.8); RDW 13.3 % (11.6-15.6); WHITE BLOOD COUNT 8.3 K/mm3 (4.0-10.0)
[2016-12-28 20:36] LABS: PLATELET COUNT 253 K/MM3 (134-434); PLATELET ESTIMATE ADEQUATE (NORMAL)
[2016-12-28 20:53] LABS: ALBUMIN 3.3 g/dl (3.4-5.0); ALK PHOS 80 U/L (45-117); ANION GAP 7 (8-16); BILIRUBIN,TOTAL 0.2 mg/dL (0.2-1.0); CALCIUM 8.5 mg/dL (8.5-10.1); CO2 31 mmol/L (21-32); CREATININE 0.7 mg/dL (0.55-1.02); GLUCOSE,RANDOM 195 mg/dL (74-106); SGOT/AST 11 U/L (15-37); SGPT/ALT 20 U/L (12-78); TOT PROT 6.7 g/dl (6.4-8.2)
[2016-12-28 20:56] LABS: BILIRUBIN,DIRECT < 0.1 mg/dL (0.0-0.2)
--- NOTE | 2016-12-28 21:16 | PDOC ---
Attending Attestation - Resident Resident Name: Ezequiel Fuchs - ED Attending Attestation I have performed the following: I have examined & evaluated the patient, The case was reviewed & discussed with the resident, I agree w/resident's findings & plan, Exceptions are as noted - HPI HPI: 12/28/16 21:13 abd pain and blurry vision - Physicial Exam PE: 12/28/16 21:15 ? Scleral icterus - Medical Decision Making 12/28/16 21:[address] Fuchs's assessment and plan Discharge Disposition - Diagnosis Duodenitis Acute pancreatitis Qualifiers: Pancreatitis type: other Acute pancreatitis complication: uninfected necrosis Qualified Code(s): K85.81 - Other acute pancreatitis with uninfected necrosis - Discharge Dispostion Condition at time of disposition: Improved Last Admission D/C Date: 06/14/16 Admit: Yes
[2016-12-28] MEDS ORDERED: POTASSIUM CHLORIDE TABS 20 MEQ TABLET.ER (FP) PO ONE ×2 (22:18→23:12)
[2016-12-28] MEDS ORDERED: VENLAFAXINE HCL 50 MG TABLET PO ONE (22:22)
[2016-12-28] MEDS ORDERED: diazePAM 5 MG TABLET PO ONE (22:23)
[2016-12-28] MEDS ORDERED: QUEtiapine FUMARATE 100 MG TABLET (FP) PO ONE (22:23)
[2016-12-28] MEDS ORDERED: VENLAFAXINE HCL 25 MG TABLET PO ONE (22:45)
[2016-12-28] MEDS ORDERED: diazePAM 5 MG TABLET ONE (23:09)
[2016-12-28] MEDS ORDERED: QUEtiapine FUMARATE 100 MG TABLET (FP) ONE (23:11)
[2016-12-29] MEDS ORDERED: morphine CARPU-JECT 2 MG/1 ML DISP.SYRIN IVPUSH ONE (00:10)
[2016-12-29] MEDS ORDERED: morphine CARPU-JECT 4 MG/1 ML DISP.SYRIN ONE (01:22)
[2016-12-29] MEDS ORDERED: FAMOTIDINE 20 MG/50 ML IVPB 50 ML IVPB ONE ×2 (06:34→06:51)
[2016-12-29] MEDS ORDERED: ACETAMINOPHEN 1000 MG/100 ML VIAL (NON FORMULARY) IVPB ONE (07:12)
[2016-12-29] MEDS ORDERED: VENLAFAXINE HCL 50 MG TABLET PO ONE (07:12)
[2016-12-29] MEDS ORDERED: QUEtiapine FUMARATE 100 MG TABLET (FP) PO ONE (07:14)
[2016-12-29] MEDS ORDERED: diazePAM 5 MG TABLET PO ONE (07:15)
[2016-12-29] MEDS ORDERED: QUEtiapine FUMARATE 100 MG TABLET (FP) ONE (07:33)
[2016-12-29] MEDS ORDERED: diazePAM 5 MG TABLET ONE (07:33)
--- NOTE | 2016-12-29 08:00 | PDOC ---
*Physical Exam - Vital Signs Last Vital Signs Temp Pulse Resp BP Pulse Ox 97.9 F 89 19 135/77 98 12/29/16 06:16 12/29/16 06:16 12/29/16 06:16 12/29/16 06:16 12/29/16 06:16 ED Treatment Course - LABORATORY CBC & Chemistry Diagram: 12/28/16 19:48 12/28/16 19:48 - ADDITIONAL ORDERS Additional order review: Laboratory Results 12/28/16 12/28/16 12/28/16 21:57 21:56 19:48 Sodium 136 Potassium 3.1 L D Chloride 98 Carbon Dioxide 31 Anion Gap 7 L BUN 7 D Creatinine 0.7 Creat Clearance w eGFR > 60 Random Glucose 195 H D Calcium 8.5 Total Bilirubin 0.2 D Direct Bilirubin < 0.1 AST 11 L ALT 20 D Alkaline Phosphatase 80 D Ammonia 21.87 Total Protein 6.7 Albumin 3.3 L Lipase Alcohol, Quantitative < 5.0 12/28/16 19:45 Sodium Potassium Chloride Carbon Dioxide Anion Gap BUN Creatinine Creat Clearance w eGFR Random Glucose Calcium Total Bilirubin Direct Bilirubin AST ALT Alkaline Phosphatase Ammonia Total Protein Albumin Lipase 377 Alcohol, Quantitative 12/28/16 19:48 RBC 4.07 MCV 88.8 MCHC 34.1 RDW 13.3 MPV 8.9 D Neutrophils % 46.4 D Lymphocytes % 42.7 H D Monocytes % 8.3 Eosinophils % 2.4 Basophils % 0.2 - Medications Given in the ED: ED Medications Discontinued Medications Generic Name Dose Route Start Last Admin Trade Name Maldonadoq PRN Reason Stop Dose Admin Acetaminophen 1,000 mg 12/29/16 07:12 12/29/16 07:47 Ofirmev Injection - IVPB 12/29/16 07:13 1,000 mg ONCE ONE Administration Diazepam 5 mg 12/28/16 22:23 12/28/16 22:55 Valium - PO 12/28/16 22:24 5 mg ONCE ONE Administration Diazepam 5 mg 12/29/16 07:15 12/29/16 07:47 Valium - PO 12/29/16 07:16 5 mg ONCE ONE Administration Famotidine/Sodium Chloride 50 mls @ 100 mls/hr 12/29/16 06:34 12/29/16 06:59 Pepcid 20 Mg Premixed Ivpb - IVPB 12/29/16 07:03 100 mls/hr ONCE ONE Administration Morphine Sulfate 2 mg 12/28/16 19:38 12/28/16 19:55 Morphine Injection - IVPUSH 12/28/16 19:39 2 mg ONCE ONE Administration Morphine Sulfate 2 mg 12/29/16 00:10 12/29/16 01:00 Morphine Injection - IVPUSH 12/29/16 00:11 2 mg ONCE ONE Administration Potassium Chloride 40 meq 12/28/16 22:18 12/28/16 22:50 K-Dur - PO 12/28/16 22:19 40 meq ONCE ONE Administration Quetiapine Fumarate 100 mg 12/28/16 22:23 12/28/16 22:50 Seroquel - PO 12/28/16 22:24 100 mg ONCE ONE Administration Quetiapine Fumarate 100 mg 12/29/16 07:14 12/29/16 07:47 Seroquel - PO 12/29/16 07:15 100 mg ONCE ONE Administration Venlafaxine HCl 50 mg 12/28/16 22:45 12/28/16 23:21 Effexor - PO 12/28/16 22:46 50 mg ONCE ONE Administration Medical Decision Making - Medical Decision Making 12/29/16 07:59 Care taken over from Dr. Fuchs for admit. 12/29/16 08:[address] Efe Rich regarding patient, he endorsed acceptance and will be admitted under Dr. Boyce. Dr. Rich will discuss with Dr. Boyce. 12/29/16 08:14 Spoke with Ryan, they previously discussed with Dr. Boyce - ryan will admit patient. 12/29/16 09:03 *DC/Admit/Observation/Transfer Diagnosis at time of Disposition: Duodenitis Acute pancreatitis Qualifiers: Pancreatitis type: other Acute pancreatitis complication: uninfected necrosis Qualified Code(s): K85.81 - Other acute pancreatitis with uninfected necrosis - Discharge Dispostion Condition at time of disposition: Improved Admit: Yes - Attestations Physician Attestion: 12/29/16 09:04 I, Dr. Ricardo Shah, attest that this document has been prepared under my direction and personally reviewed by me in its entirety. I further attest, that it accurately reflects all work, treatment, procedures and medical decision -making performed by me.
[2016-12-29] MEDS ORDERED: SODIUM CHLORIDE 1,000 ML IV STA (08:11)
[2016-12-29] MEDS ORDERED: SODIUM CHLORIDE 1,000 ML IV SCH (08:15)
[2016-12-29] MEDS ORDERED: morphine CARPU-JECT 4 MG/1 ML DISP.SYRIN IVPUSH PRN (10:06)
[2016-12-29] MEDS ORDERED: oxyCODONE HCL 5 MG TABLET PO PRN (10:19)
[2016-12-29] MEDS ORDERED: NITROGLYCERIN SUBLINGUAL 1/150 0.4 MG TAB SL PRN (10:19)
--- NOTE | 2016-12-29 10:23 | EKG ---
Test Reason : Blood Pressure : / mmHG Vent. Rate : 085 BPM Atrial Rate : 085 BPM P-R Int : 170 ms QRS Dur : 084 ms QT Int : 380 ms P-R-T Axes : 053 031 039 degrees QTc Int : 452 ms NORMAL SINUS RHYTHM INCOMPLETE RBBB ABNORMAL ECG Confirmed by CORRY DOMINGO MD ([id number]) on 12/29/2016 10:23:22 AM Referred By: Confirmed By:CORRY DOMINGO MD
--- NOTE | 2016-12-29 10:28 | HP ---
CHIEF COMPLAINT: Abdominal Pain PCP: Dr. Efe Rich GI: Dr. Hernandez Ladler: Dr. Garcias Psychiatrist: Dr. Brooks HISTORY OF PRESENT ILLNESS: Patient was drowsy and lethargic due to medical condition. Patient is a 46 year old female with a PMHx of COPD/Emphysema, CAD with history of coronary vasospasms secondary to cocaine abuse (No history of OK, as per retail coverage merchandiser lead, Dr. Estrada who I spoke to today), HTN, HLD, DMII, anxiety/ depression, polysubstance abuse who presented for diffuse abdominal pain that started yesterday afternoon. Patient was in her normal state of health when all of a sudden she started experiencing constant, non-radiating, "achy" diffuse abdominal pain. States the pain is worse on any type of movement and with no alleviating factors. She reports the severity of the pain is 8/10. Pain is associated with nausea but no vomiting. Patient reports she experienced abdominal pain in the past but not the same as the current pain she is experiencing now. Patient does report recent use of Cocaine and alcohol use for the last three months. She states she relapsed after being sober since 2014 due to recent stress in her life. Patient states her grandson ran away three months ago and since then she has been feeling more depressed but not suicidal. Patient denies any NSAID use. Denies any recent travel or diet change. Patient reports she had an EGD and colonoscopy "years ago" but does not remember the exact year and states that "everything was normal." Otherwise , patient denies any nausea, vomiting, chest pain, palpitations, shortness of breath, flank pain, dysuria, hematuria, melena, hematochezia, hematemesis, diarrhea, constipation, headache, loss of consciousness, dizziness, acute visual changes, suicidal or homicidal ideation, hallucinations. ER course was notable for: (1) Normal Saline, Morphine, and Valium (2) CT revealed Mild pancreatitis Recent Travel: Denies PAST MEDICAL HISTORY: 1.)COPD/Emphysema 2.)CAD with history of coronary vasospasms secondary to cocaine use (No history of OK, as per retail coverage merchandiser lead, Dr. Estrada) 3.)HTN 4.)HLD 5.)DMII 6.)Anxiety/depression 7.)Polysubstance abuse PAST SURGICAL HISTORY: 1.)Cardiac Catheterization with normal coronary vessels (2009). Confirmed with Ladler, Dr. Estrada 2.)Normal Stress test (2015). Confirmed with Dr. Estrada 3.)Right Arthroplasty (2012) Social History: Smokin PPD Alcohol: 2-3 pints of liquor for the last three months. Reports being sober since 2014 but relapsed three months ago Drugs: Reports last cocaine use 2 days ago. Family History: Mother- Breast Cancer, CAD, DM, HTN Father- Lung cancer, DM, and HTN Allergies: levofloxacin [From Levaquin] Allergy (Intermediate, Verified 12/28/16 17:47) Rash aripiprazole [From Abilify] Allergy (Mild, Verified 12/28/16 17:47) Itching buspirone HCl [From BuSpar] Allergy (Mild, Verified 12/28/16 17:47) Itching medroxyprogesterone acetate [From Provera] Allergy (Mild, Verified 12/28/16 17: 47) Itching trazodone Allergy (Mild, Verified 12/28/16 17:47) Itching ziprasidone HCl [From Geodon] Allergy (Mild, Verified 12/28/16 17:47) Itching ziprasidone mesylate [From Geodon] Allergy (Mild, Verified 12/28/16 17:47) Itching losartan potassium [From Cozaar] Adverse Reaction (Severe, Verified 08 17: 47) Elevated Blood Pressure bupropion HCl [From Wellbutrin] Adverse Reaction (Verified 12/28/16 17:47) MICHELLEKEY, SLEEPY HOME MEDICATIONS: Home Medications Medication Instructions Recorded Multivitamin [Multivitamins] 1 each PO DAILY 11/19/12 Nitroglycerin Sublingual 0.4 mg SL PRN PRN #0 tab 02/11/13 [Nitrostat -] Insulin NPL/Insulin Lispro 15 unit SQ HS 09/09/13 [Humalog Mix 75-25 Pen] Insulin NPL/Insulin Lispro 30 unit SQ AM 09/09/13 [Humalog Mix 75-25 Pen] Aspirin Coated [Ecotrin -] 81 mg PO DAILY #30 tablet.ec 09/13/13 Loratadine [Claritin -] 10 mg PO DAILY #30 09/13/13 Pantoprazole Sodium [Protonix -] 40 mg PO DAILY #30 tablet.ec 09/13/13 Albuterol Sulfate Inhaler - 1 - 2 inh PO QID PRN 01/01/14 [Ventolin HFA Inhaler -] Carvedilol 12.5 mg PO BID 05/31/16 Diltiazem Cd [Cardizem Cd -] 360 mg PO DAILY 05/31/16 Oxycodone HCl [Roxicodone -] 10 mg PO TID tablet MDD 3 06/14/16 Quetiapine Fumarate [Seroquel] 200 tab PO TID 07/07/16 Diazepam [Valium] 10 mg PO HS 12/28/16 Venlafaxine HCl [Effexor -] 0 mg PO TID 12/28/16 REVIEW OF SYSTEMS CONSTITUTIONAL: Absent: fever, chills, diaphoresis, generalized weakness, malaise, loss of appetite, weight change HEENT: Absent: rhinorrhea, nasal congestion, throat pain, throat swelling, difficulty swallowing, mouth swelling, ear pain, eye pain, visual changes CARDIOVASCULAR: Absent: chest pain, syncope, palpitations, irregular heart rate, lightheadedness , peripheral edema RESPIRATORY: Absent: cough, shortness of breath, dyspnea with exertion, orthopnea, wheezing, stridor, hemoptysis GASTROINTESTINAL: abdominal pain Absent: abdominal distension, nausea, vomiting, diarrhea, constipation, melena, hematochezia GENITOURINARY: hesitancy Absent: dysuria, frequency, urgency, hematuria, flank pain, genital pain MUSCULOSKELETAL: Absent: myalgia, arthralgia, joint swelling, back pain, neck pain SKIN: Absent: rash, itching, pallor HEMATOLOGIC/IMMUNOLOGIC: Absent: easy bleeding, easy bruising, lymphadenopathy, frequent infections ENDOCRINE: Absent: unexplained weight gain, unexplained weight loss, heat intolerance, cold intolerance NEUROLOGIC: Absent: headache, focal weakness or paresthesias, dizziness, unsteady gait, seizure, mental status changes, bladder or bowel incontinence PSYCHIATRIC: anxiety, depression Absent: suicidal or homicidal ideation, hallucinations. PHYSICAL EXAMINATION Vital Signs - 24 hr 12/29/16 08:05 Pulse Rate [ 76 Left Radial] Respiratory 18 Rate Blood Pressure 148/73 [Right Arm] O2 Sat by Pulse 100 Oximetry (%) GENERAL: Drowsy and lethargic but oriented x3, in no acute distress. HEAD: Normal with no signs of trauma. EYES: Pupils equal, round and reactive to light, extraocular movements intact, sclera icteric EARS, NOSE, THROAT: Oropharynx clear without exudates. Moist mucous membranes. NECK: Normal range of motion, supple without lymphadenopathy LUNGS: Breath sounds equal, clear to auscultation bilaterally. No wheezes, and no crackles. No accessory muscle use. HEART: Regular rate and rhythm, normal S1 and S2 without murmur, rub or gallop. ABDOMEN: Soft with diffuse tenderness throughout all quadrants upon palpation. normoactive bowel sounds, no guarding, no rebound, no masses. (-) No hepatomegaly (-) splenomegaly.(-) Psoas, (-) Obturator sign. MUSCULOSKELETAL: No CVA tenderness. UPPER EXTREMITIES: No peripheral edema. LOWER EXTREMITIES: No calf tenderness. No peripheral edema. NEUROLOGICAL: Sensory strength intact. Motor strength 5/5 throughout. No facial droop. CN 2-12 intact, did not evaluate CN VIII. PSYCHIATRIC: Anxious, drowsy SKIN: No rashes or lesions noted Laboratory Results - last 24 hr 12/28/16 12/28/16 12/28/16 08:00 19:45 19:48 WBC 8.3 RBC 4.07 Hgb 12.3 Hct 36.1 MCV 88.8 MCH 30.2 MCHC 34.1 RDW 13.3 Plt Count 253 D MPV 8.9 D Neutrophils % 46.4 D Lymphocytes % 42.7 H D Monocytes % 8.3 Eosinophils % 2.4 Basophils % 0.2 Platelet Estimate Adequate Platelet Comment No clumping noted INR PTT (Actin FS) Sodium Potassium Chloride Carbon Dioxide Anion Gap BUN Creatinine Creat Clearance w eGFR POC Glucometer Random Glucose Hemoglobin A1c % Calcium Magnesium Total Bilirubin Direct Bilirubin AST ALT Alkaline Phosphatase Ammonia Total Protein Albumin Triglycerides Cholesterol Total LDL Cholesterol HDL Cholesterol Lipase 377 Opiates Screen Methadone Screen Barbiturate Screen Phencyclidine Screen Ur Amphetamines Screen MDMA (Ecstasy) Screen Benzodiazepines Screen Cocaine Screen U Marijuana (THC) Screen Alcohol, Quantitative Hepatitis C Antibody Cancelled 12/28/16 12/28/16 12/28/16 19:48 21:56 21:57 WBC RBC Hgb Hct MCV MCH MCHC RDW Plt Count MPV Neutrophils % Lymphocytes % Monocytes % Eosinophils % Basophils % Platelet Estimate Platelet Comment INR PTT (Actin FS) Sodium 136 Potassium 3.1 L D Chloride 98 Carbon Dioxide 31 Anion Gap 7 L BUN 7 D Creatinine 0.7 Creat Clearance w eGFR > 60 POC Glucometer Random Glucose 195 H D Hemoglobin A1c % Calcium 8.5 Magnesium Total Bilirubin 0.2 D Direct Bilirubin < 0.1 AST 11 L ALT 20 D Alkaline Phosphatase 80 D Ammonia 21.87 Total Protein 6.7 Albumin 3.3 L Triglycerides Cholesterol Total LDL Cholesterol HDL Cholesterol Lipase Opiates Screen Methadone Screen Barbiturate Screen Phencyclidine Screen Ur Amphetamines Screen MDMA (Ecstasy) Screen Benzodiazepines Screen Cocaine Screen U Marijuana (THC) Screen Alcohol, Quantitative < 5.0 Hepatitis C Antibody 12/29/16 12/29/16 12/29/16 10:47 10:47 10:47 WBC RBC Hgb Hct MCV MCH MCHC RDW Plt Count MPV Neutrophils % Lymphocytes % Monocytes % Eosinophils % Basophils % Platelet Estimate Platelet Comment INR 1.16 H PTT (Actin FS) 32.1 Sodium 136 Potassium 3.8 D Chloride 102 Carbon Dioxide 28 Anion Gap 6 L BUN 3 L D Creatinine 0.6 Creat Clearance w eGFR POC Glucometer Random Glucose 239 H D Hemoglobin A1c % 11.1 H D Calcium 8.0 L Magnesium 1.6 L Total Bilirubin Direct Bilirubin AST ALT Alkaline Phosphatase Ammonia Total Protein Albumin Triglycerides Cholesterol Total LDL Cholesterol HDL Cholesterol Lipase Opiates Screen Methadone Screen Barbiturate Screen Phencyclidine Screen Ur Amphetamines Screen MDMA (Ecstasy) Screen Benzodiazepines Screen Cocaine Screen U Marijuana (THC) Screen Alcohol, Quantitative Hepatitis C Antibody 12/29/16 12/29/16 12/29/16 10:47 11:15 11:44 WBC RBC Hgb Hct MCV MCH MCHC RDW Plt Count MPV Neutrophils % Lymphocytes % Monocytes % Eosinophils % Basophils % Platelet Estimate Platelet Comment INR PTT (Actin FS) Sodium Potassium Chloride Carbon Dioxide Anion Gap BUN Creatinine Creat Clearance w eGFR POC Glucometer 233 Random Glucose Hemoglobin A1c % Calcium Magnesium Total Bilirubin Direct Bilirubin AST ALT Alkaline Phosphatase Ammonia Total Protein Albumin Triglycerides 139 Cholesterol 142 Total LDL Cholesterol 76 HDL Cholesterol 43 Lipase Opiates Screen Positive Methadone Screen Negative Barbiturate Screen Negative Phencyclidine Screen Positive Ur Amphetamines Screen Negative MDMA (Ecstasy) Screen Negative Benzodiazepines Screen Positive Cocaine Screen Positive U Marijuana (THC) Screen Negative Alcohol, Quantitative Hepatitis C Antibody IMAGES: Abdominal U/S (12/28/16): No gallstones are identified. Mild hepatomegaly with a slightly coarse echotexture. Rule out mild fatty infiltration versus hepatocellular disease. Please correlate with liver enzymes. Minimal dilatation of the pancreatic duct measuring 2.5 mm which is nonspecific Abdominal CT w/o Contrast (12/28/16): Hepatomegaly without gross interval change Questionable mesenteric haziness around the superior mesenteric artery, medial margin of the right pancreatic head and uncinate process. Further evaluation with contrast-enhanced CT scan is needed in view of the clinical history, rule out pancreatitis CT Abdomen/Pelvis w/Contrast (12/29/16): Findings suggest early or mild pancreatitis. Hepatomegaly. Small splenic hypodensity which may be evaluated with ultrasound. Dominant right follicle or cyst with small amount of free fluid. Retention of stool. Other findings as above. ASSESSMENT/PLAN: Patient is a 46 year old female with a PMHx of COPD/Emphysema, CAD with history of coronary vasospasms secondary to cocaine abuse (No history of OK, as per retail coverage merchandiser lead, Dr. Estrada who confirmed), HTN, HLD, DMII, anxiety/depression, polysubstance abuse who presented for diffuse abdominal pain and was found to have acute pancreatitis. Patient admitted for further monitoring and management. Acute Pancreatitis on Possible Chronic Pancreatitis -Likely secondary to Alcohol abuse -CT revealed mild pancreatitis -U/S and CT revealed no cholelithiasis -Lipase wnl -Brisk Hydration with IV LR @200cc/hr for 6hrs, then 150cc/hr for 6hrs, then maintenance @125cc/hr -Pain control with Morphine 2mg IVP Q6H PRN -Will begin with Clear liquid diet and advance as tolerate -Lipid Panel ordered -Hepatitis Panel ordered by ED -GI consult placed Polysubstance Abuse -CIWA Score 1 -Urine toxicology ordered and was positive for PCP and Cocaine -Reports being sober since 2014 and relapsed the last 3 months due to recent stress. Now drinking liquor and using Cocaine -Continue Valium 5mg BID -Banana Bag ordered HypoKalemia/Hypomagnesemia -Potassium 40meq given in the ED. Repeat is 3.8. -Magnesium 2gm IVPB given -Continue IV LR, which has potassium -Monitor BMP Elevated INR -Possibly secondary to Liver disease -History of Alcohol abuse -CT revealed hepatomegaly -LFT's wnl -Will continue to monitor LFT -GI consult placed CAD w/hx of Coronary Vasospasms secondary to Cocaine Abuse -Continue Aspirin 81mg daily -HOLD all Beta Blockers! HTN/HLD -NO BETA BLOCKERS DUE TO COCAINE USE AND HISTORY OF CORONARY VASOSPASM -Will discontinue Coreg, as per retail coverage merchandiser lead -Continue Diltiazem 360mg daily -Continue Lipitor 10mg HS -Continue to monitor BP -Lipid panel ordered DMII with Neuropathy -BGM -ISS -Continue lyrica 150mg BID -A1C ordered COPD/Asthma -In no acute exacerbation -Duo-Neb Q6H PRN -Continue Claritin 10mg daily Anxiety/Depression -Continue Seroquel 200mg PO TID -Continue Effexor 75mg PO TID -Will need to follow up with her Psychiatrist Recent Hesitancy -U/A ordered -Urine cultures ordered Nicotine dependence -Nicotine Patch 21mg TD F/E/N -IV LR -Hypomagnesemia/Hyperkalemia repleted -Clear diabetic controlled liquids. Prophylaxis -Heparin 5000 units SQ Q8H -Ranitidine 150mg BID for GI Disposition -Full code -Admit to med/surg. GI consult placed. Visit type - Emergency Visit Emergency Visit: Yes ED Registration Date: 12/29/16 Care time: The patient presented to the Emergency Department on the above date and was hospitalized for further evaluation of their emergent condition. - New Patient This patient is new to me today: Yes Date on this admission: 12/29/16 - Critical Care Critical Care patient: No
[2016-12-29 12:13] LABS: ANION GAP 6 (8-16); CO2 28 mmol/L (21-32); GLUCOSE,RANDOM 239 mg/dL (74-106); MAGNESIUM 1.6 mg/dL (1.8-2.4)
[2016-12-29 12:15] LABS: CREATININE 0.6 mg/dL (0.55-1.02)
[2016-12-29 12:20] LABS: INR 1.16 (0.82-1.09); PROTHROMBIN TIME (PATIENT) 12.8 SEC (9.98-11.88)
[2016-12-29 12:22] LABS: CHOLESTEROL 142 mg/dL (50-200); LDL CHOLESTEROL (ONLY SJRH) 76 mg/dL (5-100)
[2016-12-29 12:23] LABS: ACTIVATED PTT 32.1 SECONDS (26.9-34.4)
[2016-12-29 12:46] LABS: URINE MARIJUANA THC NEGATIVE ng/ml (CUTOFF=50)
[2016-12-29 13:12] VITALS: BMI 26.4
[2016-12-29] MEDS ORDERED: INSULIN (NOVOLOG) ASPART 100 UNITS/ML 10ML VIAL ONE (13:50)
[2016-12-29] MEDS: INSULIN SLIDING SCALE (NOVOLOG) 1 VIAL SQ SCH ×3 (13:52→23:00)
[2016-12-29] MEDS: HEPARIN NA (PORCINE) 5,000 UNITS/ML 1ML VIAL SQ SCH ×2 (13:52→22:37)
[2016-12-29] MEDS ORDERED: MAGNESIUM SULF 50% (8.12 MEQ/2 ML-1 GM VIAL) IVPB ONE (14:00)
[2016-12-29] MEDS ORDERED: ALBUTEROL SO4 0.083% IH SOL 2.5 MG/3 ML VIAL.NEB. NEB PRN (14:41)
[2016-12-29] MEDS ORDERED: LACTATED RINGERS SOLUTION 1,000 ML IV SCH ×3 (15:30→21:30)
[2016-12-29] MEDS: VENLAFAXINE HCL 75 MG TABLET PO SCH ×2 (16:02→22:58)
[2016-12-29] MEDS ORDERED: FOLIC ACID INJECTION - 1 MG, THIAMINE HCL 100 MG, MULTIVIT INJECTION ADULT 10 ML in SOD... IVPB ONE (16:09)
--- NOTE | 2016-12-29 16:12 | PN ---
Teaching Attending Note Name of Resident: Claire Kahn ATTENDING PHYSICIAN STATEMENT I saw and evaluated the patient. I reviewed the resident's note and discussed the case with the resident. I agree with the resident's findings and plan as documented. SUBJECTIVE: Patient is a 46yo female c/o having severe midepigastric pain. OBJECTIVE: Vital Signs Temperature 97.9 F 12/29/16 15:28 Pulse Rate 79 12/29/16 15:28 Respiratory Rate 18 12/29/16 12:56 Blood Pressure 163/98 12/29/16 15:28 O2 Sat by Pulse Oximetry (%) 100 12/29/16 12:56 CBCD WBC 8.3 K/mm3 (4.0-10.0) 12/28/16 19:48 RBC 4.07 M/mm3 (3.60-5.2) 12/28/16 19:48 Hgb 12.3 GM/dL (10.7-15.3) 12/28/16 19:48 Hct 36.1 % (32.4-45.2) 12/28/16 19:48 MCV 88.8 fl (80-96) 12/28/16 19:48 MCHC 34.1 g/dl (32.0-36.0) 12/28/16 19:48 RDW 13.3 % (11.6-15.6) 12/28/16 19:48 Plt Count 253 K/MM3 (134-434) D 12/28/16 19:48 MPV 8.9 fl (7.5-11.1) D 12/28/16 19:48 CMP Sodium 136 mmol/L (136-145) 12/29/16 10:47 Potassium 3.8 mmol/L (3.5-5.1) D 12/29/16 10:47 Chloride 102 mmol/L (98-107) 12/29/16 10:47 Carbon Dioxide 28 mmol/L (21-32) 12/29/16 10:47 Anion Gap 6 (8-16) L 12/29/16 10:47 BUN 3 mg/dL (7-18) L D 12/29/16 10:47 Creatinine 0.6 mg/dL (0.55-1.02) 12/29/16 10:47 Creat Clearance w eGFR > 60 (>60) 12/28/16 19:48 Random Glucose 239 mg/dL (74-106) H D 12/29/16 10:47 Calcium 8.0 mg/dL (8.5-10.1) L 12/29/16 10:47 Total Bilirubin 0.2 mg/dL (0.2-1.0) D 12/28/16 19:48 AST 11 U/L (15-37) L 12/28/16 19:48 ALT 20 U/L (12-78) D 12/28/16 19:48 Alkaline Phosphatase 80 U/L (45-117) D 12/28/16 19:48 Total Protein 6.7 g/dl (6.4-8.2) 12/28/16 19:48 Albumin 3.3 g/dl (3.4-5.0) L 12/28/16 19:48 Current Medications Generic Name Dose Route Start Last Admin Trade Name Freq PRN Reason Stop Dose Admin Albuterol Sulfate 1 amp 12/29/16 14:41 Ventolin 0.083% Nebulizer Soln - NEB TIDR PRN SHORT OF BREATH/WHEEZING Aspirin 81 mg 12/30/16 10:00 Ecotrin - PO DAILY GILMA Atorvastatin Calcium 10 mg 12/29/16 22:00 Lipitor - PO HS GILMA Diazepam 5 mg 12/29/16 22:00 Valium - PO BID PRN Diltiazem HCl 360 mg 12/30/16 10:00 Cardizem Cd - PO DAILY GILMA Heparin Sodium (Porcine) 5,000 unit 12/29/16 14:00 12/29/16 13:52 Heparin - SQ 5,000 unit TID GILMA Administration Lactated Ringer's 1,000 mls @ 200 mls/hr 12/29/16 15:30 12/29/16 16:01 Lactated Ringers Solution IV 12/29/16 21:29 200 mls/hr ASDIR GILMA Administration Lactated Ringer's 1,000 mls @ 125 mls/hr 12/29/16 15:30 Lactated Ringers Solution IV ASDIR GILMA Lactated Ringer's 1,000 mls @ 150 mls/hr 12/29/16 21:30 Lactated Ringers Solution IV 12/30/16 03:29 ASDIR GILMA Folic Acid 1 mg/ Thiamine HCl 1,000 mls @ 125 mls/hr 12/29/16 16:09 100 mg/ Multivitamins/Minerals IVPB 12/30/16 00:08 10 ml/ Sodium Chloride ONCE ONE Insulin Aspart 1 vial 12/29/16 11:00 12/29/16 13:52 Novolog Vial Sliding Scale - SQ 4 units ACHS [facility] Administration Protocol Loratadine 10 mg 12/30/16 10:00 Claritin - PO DAILY [facility] Morphine Sulfate 2 mg 12/29/16 10:06 12/29/16 13:51 Morphine Injection - IVPUSH 2 mg Q6H PRN Administration PAIN Multivitamins/Minerals/Vitamin C 1 tab 12/30/16 10:00 Tab-A-Vit - PO DAILY [facility] Nitroglycerin 0.4 mg 12/29/16 10:19 Nitrostat - SL PRN PRN FOR CHEST PAIN Oxycodone HCl 10 mg 12/29/16 10:19 12/29/16 16:02 Roxicodone - PO 10 mg Q8H PRN Administration PAIN Pregabalin 150 mg 12/29/16 22:00 Lyrica - PO BID [facility] Quetiapine Fumarate 200 mg 12/29/16 14:00 Seroquel - PO TID [facility] Venlafaxine HCl 75 mg 12/29/16 14:00 12/29/16 16:02 Effexor - PO 75 mg TID [facility] Administration Home Medications Medication Instructions Recorded Multivitamin [Multivitamins] 1 each PO DAILY 11/19/12 Nitroglycerin Sublingual 0.4 mg SL PRN PRN #0 tab 02/11/13 [Nitrostat -] Insulin NPL/Insulin Lispro 15 unit SQ HS 09/09/13 [Humalog Mix 75-25 Pen] Insulin NPL/Insulin Lispro 30 unit SQ AM 09/09/13 [Humalog Mix 75-25 Pen] Aspirin Coated [Ecotrin -] 81 mg PO DAILY #30 tablet.ec 09/13/13 Loratadine [Claritin -] 10 mg PO DAILY #30 09/13/13 Pantoprazole Sodium [Protonix -] 40 mg PO DAILY #30 tablet.ec 09/13/13 Albuterol Sulfate Inhaler - 1 - 2 inh PO QID PRN 01/01/14 [Ventolin HFA Inhaler -] Carvedilol 12.5 mg PO BID 05/31/16 Diltiazem Cd [Cardizem Cd -] 360 mg PO DAILY 05/31/16 Oxycodone HCl [Roxicodone -] 10 mg PO TID tablet MDD 3 06/14/16 Quetiapine Fumarate [Seroquel] 200 tab PO TID 07/07/16 Diazepam [Valium] 10 mg PO HS 12/28/16 Atorvastatin Calcium [Lipitor] 10 mg PO HS #14 tablet 12/29/16 Pregabalin [Lyrica -] 150 mg PO BID #10 cap MDD 2 12/29/16 Abdomen: Midepigastric pain on palpation PE: rest of physical exam per resident. ASSESSMENT AND PLAN: Patient is a 46 year old female with a PMHx of COPD/Emphysema, CAD , anxiety/ depression, polysubstance abuse who presented for diffuse abdominal pain that started yesterday afternoon. # Acute mild Pancreatitis on IVF , for consult. liquid diet r/o peptic ulcer diseae, , Iv hydration, IV Protonix DVt Px: Heparin sq
[2016-12-29] MEDS: QUEtiapine FUMARATE 100 MG TABLET (FP) PO SCH ×2 (16:26→22:35)
[2016-12-29] MEDS: LACTATED RINGERS SOLUTION 1,000 ML IV SCH (16:27)
[2016-12-29] MEDS ORDERED: ENALAPRILAT DIHYDRATE 1.25 MG/1 ML VIAL IVPB ONE (17:08)
[2016-12-29] MEDS ORDERED: ALBUTEROL SO4 2.5/IPRATROPIUM 0.5 INH SOL 3 ML VIAL.NEB. NEB PRN (18:00)
--- NOTE | 2016-12-29 18:15 | CON.GI ---
Consult Consult Specialty:: gastroenterology Reason for Consultation:: abdominal pain - History of Present Illness History of Present Illness: 46 y/o female with polysubstance abuse, psychiatric disorder was asked to be seen because of abdominal pain. She went partying an consumed alcohol, cocaine and PCP. She developed abdominal pain. Ct abdomen revealed peripancreatic inflammation. Lipase is normal. Patient continue to have epigastric pain. - Past Medical History Cardio/Vascular: Yes: AFIB (per patient--no documentation / not on AC), HTN Pulmonary: Yes: Asthma ...LMP: 12/09/16 ...: No Psych: Yes: Addictions, Bipolar Endocrine: Yes: Diabetes Mellitus - Alcohol/Substance Use Hx Alcohol Use: Yes (denies) History of Substance Use: reports: Cocaine, Marijuana - Smoking History Smoking history: Current every day smoker Have you smoked in the past 12 months: Yes Aproximately how many cigarettes per day: 8 If you are a former smoker, when did you quit?: 1 MO AGO - Social History History of Recent Travel: No Home Medications - Allergies Allergies/Adverse Reactions: Allergies Allergy/AdvReac Type Severity Reaction Status Date / Time levofloxacin [From Levaquin] Allergy Intermediate Rash Verified 12/28/16 17:47 aripiprazole [From Abilify] Allergy Mild Itching Verified 12/28/16 17:47 buspirone HCl [From BuSpar] Allergy Mild Itching Verified 12/28/16 17:47 medroxyprogesterone acetate Allergy Mild Itching Verified 12/28/16 17:47 [From Provera] trazodone Allergy Mild Itching Verified 12/28/16 17:47 ziprasidone HCl [From Geodon] Allergy Mild Itching Verified 12/28/16 17:47 ziprasidone mesylate Allergy Mild Itching Verified 12/28/16 17:47 [From Geodon] losartan potassium AdvReac Severe Elevated Verified 12/28/16 17:47 [From Cozaar] Blood Pressure bupropion HCl AdvReac Verified 12/28/16 17:47 [From Wellbutrin] - Home Medications Home Medications: Ambulatory Orders Multivitamin [Multivitamins] 1 each PO DAILY 11/19/12 Nitroglycerin Sublingual [Nitrostat -] 0.4 mg SL PRN PRN #0 tab 02/11/13 Insulin NPL/Insulin Lispro [Humalog Mix 75-25 Pen] 15 unit SQ HS 09/09/13 Insulin NPL/Insulin Lispro [Humalog Mix 75-25 Pen] 30 unit SQ AM 09/09/13 Aspirin Coated [Ecotrin -] 81 mg PO DAILY #30 tablet.ec 09/13/13 Loratadine [Claritin -] 10 mg PO DAILY #30 09/13/13 Pantoprazole Sodium [Protonix -] 40 mg PO DAILY #30 tablet.ec 09/13/13 Albuterol Sulfate Inhaler - [Ventolin HFA Inhaler -] 1 - 2 inh PO QID PRN Carvedilol 12.5 mg PO BID 05/31/16 Diltiazem Cd [Cardizem Cd -] 360 mg PO DAILY 05/31/16 Oxycodone HCl [Roxicodone -] 10 mg PO TID tablet MDD 3 06/14/16 Quetiapine Fumarate [Seroquel] 200 tab PO TID 07/07/16 Diazepam [Valium] 10 mg PO HS 12/28/16 Atorvastatin Calcium [Lipitor] 10 mg PO HS #14 tablet 12/29/16 Pregabalin [Lyrica -] 150 mg PO BID #10 cap MDD 2 12/29/16 Family Disease History - Family Disease History Family Disease History: Diabetes: Mother (), Heart Disease: Mother, CA: Father (LUNG), Mother, Other: Brother (DRUG,ALCOHOL), Sister (DRUG,ALCOHOL) Physical Exam-GI Vital Signs: Vital Signs Temperature 97.9 F 12/29/16 15:28 Pulse Rate 79 12/29/16 15:28 Respiratory Rate 18 12/29/16 12:56 Blood Pressure 163/98 12/29/16 15:28 O2 Sat by Pulse Oximetry (%) 100 12/29/16 12:56 Constitutional: Yes: Well Nourished Eyes: Yes: Conjunctiva Clear HENT: Yes: Atraumatic Neck: Yes: Supple Cardiovascular: Yes: Regular Rate and Rhythm Respiratory: Yes: CTA Bilaterally ...Palpate: Yes: Soft, Tenderness, Epigastium. No: Firm/Rigid, Guarding, Hepatomegaly, Mass, Pulsatile Mass, Splenomegaly, Tenderness Labs: CBC, BMP 12/29/16 10:47 INR, PTT INR 1.16 (0.82-1.09) H 12/29/16 10:47 CBC,CMP WBC 8.3 K/mm3 (4.0-10.0) 12/28/16 19:48 RBC 4.07 M/mm3 (3.60-5.2) 12/28/16 19:48 Hgb 12.3 GM/dL (10.7-15.3) 12/28/16 19:48 Hct 36.1 % (32.4-45.2) 12/28/16 19:48 MCV 88.8 fl (80-96) 12/28/16 19:48 MCH 30.2 pg (25.7-33.7) 12/28/16 19:48 MCHC 34.1 g/dl (32.0-36.0) 12/28/16 19:48 RDW 13.3 % (11.6-15.6) 12/28/16 19:48 Plt Count 253 K/MM3 (134-434) D 12/28/16 19:48 MPV 8.9 fl (7.5-11.1) D 12/28/16 19:48 Neutrophils % 46.4 % (42.8-82.8) D 12/28/16 19:48 Lymphocytes % 42.7 % (8-40) H D 12/28/16 19:48 Monocytes % 8.3 % (3.8-10.2) 12/28/16 19:48 Eosinophils % 2.4 % (0-4.5) 12/28/16 19:48 Basophils % 0.2 % (0-2.0) 12/28/16 19:48 Platelet Estimate Adequate (NORMAL) 12/28/16 19:48 Platelet Comment No clumping noted 12/28/16 19:48 Sodium 136 mmol/L (136-145) 12/29/16 10:47 Potassium 3.8 mmol/L (3.5-5.1) D 12/29/16 10:47 Chloride 102 mmol/L (98-107) 12/29/16 10:47 Carbon Dioxide 28 mmol/L (21-32) 12/29/16 10:47 Anion Gap 6 (8-16) L 12/29/16 10:47 BUN 3 mg/dL (7-18) L D 12/29/16 10:47 Creatinine 0.6 mg/dL (0.55-1.02) 12/29/16 10:47 Creat Clearance w eGFR > 60 (>60) 12/28/16 19:48 POC Glucometer 154 UNITS (()) 12/29/16 17:13 Random Glucose 239 mg/dL (74-106) H D 12/29/16 10:47 Hemoglobin A1c % 11.1 % (4.8-6.0) H D 12/29/16 10:47 Calcium 8.0 mg/dL (8.5-10.1) L 12/29/16 10:47 Magnesium 1.6 mg/dL (1.8-2.4) L 12/29/16 10:47 Total Bilirubin 0.2 mg/dL (0.2-1.0) D 12/28/16 19:48 Direct Bilirubin < 0.1 mg/dL (0.0-0.2) 12/28/16 19:48 AST 11 U/L (15-37) L 12/28/16 19:48 ALT 20 U/L (12-78) D 12/28/16 19:48 Alkaline Phosphatase 80 U/L (45-117) D 12/28/16 19:48 Ammonia 21.87 umol/L (11-32) 12/28/16 21:56 Total Protein 6.7 g/dl (6.4-8.2) 12/28/16 19:48 Albumin 3.3 g/dl (3.4-5.0) L 12/28/16 19:48 Triglycerides 139 mg/dL (35-160) 12/29/16 10:47 Cholesterol 142 mg/dL (50-200) 12/29/16 10:47 Total LDL Cholesterol 76 mg/dL (5-100) 12/29/16 10:47 HDL Cholesterol 43 mg/dL (40-60) 12/29/16 10:47 Lipase 377 U/L (73-393) 12/28/16 19:45 Problem List - Problems (1) Epigastric abdominal pain Assessment/Plan: r/o pepetic ulcer diseae, ischemia, pancreatitis R> Iv hydration IV Protonix advance diet once abdominal pain has improved. Code(s): R10.13 - EPIGASTRIC PAIN
[2016-12-29] MEDS: NICOTINE 21 MG/24 HOURS TOPICAL PATCH TD SCH (19:00)
[2016-12-29] MEDS: LISINOPRIL 5 MG TABLET (FP) PO SCH (20:35)
[2016-12-29 21:47] LABS: URINE APPEARANCE SLCLOUDY; URINE BILIRUBIN NEGATIVE (NEGATIVE); URINE BLOOD 1+ (NEGATIVE); URINE COLOR LTYELLOW; URINE GLUCOSE (UA) 3+ (NEGATIVE); URINE KETONE NEGATIVE (NEGATIVE); URINE LEUK ESTERASE NEGATIVE (NEGATIVE); URINE NITRITE POSITIVE (NEGATIVE); URINE PROTEIN NEGATIVE (NEGATIVE); URINE UROBILINOGEN NEGATIVE mg/dL (0.2-1.0)
[2016-12-29 21:56] LABS: URINE RBC 6 /hpf (0-3); URINE WBC 5 /hpf (3-5)
[2016-12-29] MEDS ORDERED: CARVEDILOL 12.5 MG TABLET (FP) PO SCH (22:00)
[2016-12-29] MEDS ORDERED: ENALAPRIL MALEATE 10 MG TABLET (FP) PO SCH (22:00)
[2016-12-29] MEDS ORDERED: RANITIDINE HCL 150 MG TABLET (FP) PO SCH (22:00)
[2016-12-29] MEDS ORDERED: diazePAM 5 MG TABLET PO PRN (22:00)
[2016-12-29] MEDS ORDERED: PT OWN MED DRAWER 7, Y5N ONE (22:26)
[2016-12-29] MEDS ORDERED: SODIUM CHLORIDE 100 ML IVPB ONE (22:26)
[2016-12-29] MEDS ORDERED: PANTOPRAZOLE SODIUM 40 MG VIAL ONE (22:26)
[2016-12-29] MEDS: ATORVASTATIN CA 10 MG TABLET (FP) PO SCH (22:35)
[2016-12-29] MEDS: SIMETHICONE 80 MG TAB.CHEW (FP) PO SCH (22:35)
[2016-12-29] MEDS: PREGABALIN 75 MG CAPSULE PO SCH (22:35)
[2016-12-29] MEDS: morphine CARPU-JECT 4 MG/1 ML DISP.SYRIN IVPUSH PRN (22:36)
[2016-12-29] MEDS: PANTOPRAZOLE SODIUM 40 MG in SODIUM CHLORIDE 100 ML IVPB SCH (22:36)
[2016-12-30] MEDS ORDERED: morphine CARPU-JECT 2 MG/1 ML DISP.SYRIN IVPUSH ONE (00:33)
[2016-12-30] MEDS ORDERED: morphine CARPU-JECT 4 MG/1 ML DISP.SYRIN ONE (00:57)
[2016-12-30] MEDS: morphine CARPU-JECT 4 MG/1 ML DISP.SYRIN IVPUSH PRN ×3 (02:17→11:33)
[2016-12-30] MEDS: VENLAFAXINE HCL 75 MG TABLET PO SCH ×3 (06:38→21:55)
[2016-12-30] MEDS: HEPARIN NA (PORCINE) 5,000 UNITS/ML 1ML VIAL SQ SCH ×3 (06:39→21:54)
[2016-12-30] MEDS: QUEtiapine FUMARATE 100 MG TABLET (FP) PO SCH ×3 (06:40→21:56)
[2016-12-30] MEDS: INSULIN SLIDING SCALE (NOVOLOG) 1 VIAL SQ SCH ×4 (06:49→21:59)
[2016-12-30 08:00] LABS: MCH 30.4 pg (25.7-33.7); MCHC 33.9 g/dl (32.0-36.0); MEAN CELL VOLUME 89.9 fl (80-96); MEAN PLT VOLUME 8.7 fl (7.5-11.1); PLATELET COUNT 244 K/MM3 (134-434); RDW 13.1 % (11.6-15.6); WHITE BLOOD COUNT 7.3 K/mm3 (4.0-10.0)
[2016-12-30 08:19] LABS: INR 1.17 (0.82-1.09); MAGNESIUM 1.7 mg/dL (1.8-2.4); PHOSPHOROUS 3.4 mg/dL (2.5-4.9); PROTHROMBIN TIME (PATIENT) 12.9 SEC (9.98-11.88)
[2016-12-30 08:23] LABS: ALBUMIN 3.1 g/dl (3.4-5.0); ANION GAP 8 (8-16); CALCIUM 7.9 mg/dL (8.5-10.1); CO2 28 mmol/L (21-32); GLUCOSE,RANDOM 228 mg/dL (74-106); SGOT/AST 13 U/L (15-37); SGPT/ALT 18 U/L (12-78)
[2016-12-30 08:58] LABS: ALK PHOS 78 U/L (45-117); BILIRUBIN,TOTAL 0.3 mg/dL (0.2-1.0); CREATININE 0.5 mg/dL (0.55-1.02); TOT PROT 6.2 g/dl (6.4-8.2)
[2016-12-30] MEDS ORDERED: PANTOPRAZOLE SODIUM 40 MG VIAL ONE ×2 (09:01→21:38)
[2016-12-30] MEDS ORDERED: SODIUM CHLORIDE 100 ML IVPB ONE ×2 (09:01→21:38)
[2016-12-30] MEDS: PANTOPRAZOLE SODIUM 40 MG in SODIUM CHLORIDE 100 ML IVPB SCH ×2 (09:07→22:00)
[2016-12-30] MEDS: SIMETHICONE 80 MG TAB.CHEW (FP) PO SCH ×4 (09:07→21:56)
[2016-12-30] MEDS: NICOTINE 21 MG/24 HOURS TOPICAL PATCH TD SCH (09:07)
[2016-12-30] MEDS: ASPIRIN COATED 81 MG TABLET.EC PO SCH (09:07)
[2016-12-30] MEDS: PREGABALIN 75 MG CAPSULE PO SCH ×2 (09:08→21:55)
[2016-12-30] MEDS: THIAMINE HCL 100 MG TABLET (FP) PO SCH (09:08)
[2016-12-30] MEDS: LISINOPRIL 5 MG TABLET (FP) PO SCH (09:08)
[2016-12-30] MEDS ORDERED: LORATADINE 10 MG TABLET PO SCH (10:00)
[2016-12-30] MEDS ORDERED: MULTIVITAMINS (DAILY MVI) TABLET (FP) PO SCH (10:00)
[2016-12-30] MEDS ORDERED: PT OWN MED DRAWER 7, Y5N ONE ×2 (13:48→21:38)
--- NOTE | 2016-12-30 14:29 | CON.GI ---
Consult Consult Specialty:: GI Referred by:: Dr Boyce Reason for Consultation:: Abdominal pain - History of Present Illness Chief Complaint: Abdominal pain History of Present Illness: 46 F well-known to myself with h/o poorly controlled DM with Hgb A1C of 11.1, polysubstance abuse, psych issues, admitted with abdominal pain after going to a democrat aned using ETOH, cocaine and PCP. CT with questionable izaiah-pancreatic inflammation. She is still in pain but pancreatic enzymes have normalized. - Past Medical History Cardio/Vascular: Yes: AFIB (per patient--no documentation / not on AC), HTN Pulmonary: Yes: Asthma ...LMP: 12/09/16 ...: No Psych: Yes: Addictions, Bipolar Endocrine: Yes: Diabetes Mellitus - Alcohol/Substance Use Hx Alcohol Use: Yes (denies) History of Substance Use: reports: Cocaine, Marijuana - Smoking History Smoking history: Current every day smoker Have you smoked in the past 12 months: Yes Aproximately how many cigarettes per day: 8 If you are a former smoker, when did you quit?: 1 MO AGO - Social History History of Recent Travel: No Home Medications - Allergies Allergies/Adverse Reactions: Allergies Allergy/AdvReac Type Severity Reaction Status Date / Time levofloxacin [From Levaquin] Allergy Intermediate Rash Verified 12/28/16 17:47 aripiprazole [From Abilify] Allergy Mild Itching Verified 12/28/16 17:47 buspirone HCl [From BuSpar] Allergy Mild Itching Verified 12/28/16 17:47 medroxyprogesterone acetate Allergy Mild Itching Verified 12/28/16 17:47 [From Provera] trazodone Allergy Mild Itching Verified 12/28/16 17:47 ziprasidone HCl [From Geodon] Allergy Mild Itching Verified 12/28/16 17:47 ziprasidone mesylate Allergy Mild Itching Verified 12/28/16 17:47 [From Geodon] losartan potassium AdvReac Severe Elevated Verified 12/28/16 17:47 [From Cozaar] Blood Pressure bupropion HCl AdvReac Verified 12/28/16 17:47 [From Wellbutrin] - Home Medications Home Medications: Ambulatory Orders Multivitamin [Multivitamins] 1 each PO DAILY 11/19/12 Nitroglycerin Sublingual [Nitrostat -] 0.4 mg SL PRN PRN #0 tab 02/11/13 Insulin NPL/Insulin Lispro [Humalog Mix 75-25 Pen] 15 unit SQ HS 09/09/13 Insulin NPL/Insulin Lispro [Humalog Mix 75-25 Pen] 30 unit SQ AM 09/09/13 Aspirin Coated [Ecotrin -] 81 mg PO DAILY #30 tablet.ec 09/13/13 Loratadine [Claritin -] 10 mg PO DAILY #30 09/13/13 Pantoprazole Sodium [Protonix -] 40 mg PO DAILY #30 tablet.ec 09/13/13 Albuterol Sulfate Inhaler - [Ventolin HFA Inhaler -] 1 - 2 inh PO QID PRN Carvedilol 12.5 mg PO BID 05/31/16 Diltiazem Cd [Cardizem Cd -] 360 mg PO DAILY 05/31/16 Oxycodone HCl [Roxicodone -] 10 mg PO TID tablet MDD 3 06/14/16 Quetiapine Fumarate [Seroquel] 200 tab PO TID 07/07/16 Diazepam [Valium] 10 mg PO HS 12/28/16 Atorvastatin Calcium [Lipitor] 10 mg PO HS #14 tablet 12/29/16 Pregabalin [Lyrica -] 150 mg PO BID #10 cap MDD 2 12/29/16 Family Disease History - Family Disease History Family Disease History: Diabetes: Mother (), Heart Disease: Mother, CA: Father (LUNG), Mother, Other: Brother (DRUG,ALCOHOL), Sister (DRUG,ALCOHOL) Physical Exam-GI Vital Signs: Vital Signs Temperature 98.8 F 12/30/16 13:57 Pulse Rate 70 12/30/16 13:57 Respiratory Rate 18 12/30/16 13:57 Blood Pressure 127/63 12/30/16 13:57 O2 Sat by Pulse Oximetry (%) 97 12/30/16 09:00 Constitutional: Yes: Well Nourished Neck: Yes: Supple Cardiovascular: Yes: Regular Rate and Rhythm Respiratory: Yes: CTA Bilaterally Gastrointestinal Inspection: Yes: WNL ...Auscultate: Yes: Normoactive Bowel Sounds ...Palpate: Yes: Soft, Tenderness (mild diffuse) Labs: CBC, BMP 12/30/16 07:40 12/30/16 07:40 INR, PTT INR 1.17 (0.82-1.09) H 12/30/16 07:40 Imaging - Results Cat Scan: Report Reviewed (as noted) Assessment/Plan 44 F with above history now with recurrent abd pain At this time labs normal and abdomen soft with mild tenderness Rec: Advance diet Follow BW If she continues to improve september d/c with f/u Advice given re: ETOH and drug use She is non-compliant with diabetic management
[2016-12-30] MEDS: LACTATED RINGERS SOLUTION 1,000 ML IV SCH (17:45)
[2016-12-30] MEDS: LIPASE/PROTEASE/AMYLASE 36,000 UNIT CAPSULE PO SCH (17:46)
[2016-12-30] MEDS ORDERED: morphine CARPU-JECT 4 MG/1 ML DISP.SYRIN IVPUSH ONE (18:45)
[2016-12-30] MEDS: ATORVASTATIN CA 10 MG TABLET (FP) PO SCH (21:54)
[2016-12-30] MEDS ORDERED: INSULIN (NOVOLOG MIX 70/30) 100 UNITS/ML MDV SQ SCH (22:15)
--- NOTE | 2016-12-30 22:20 | PN ---
Progress Note, Physician - Current Medication List Current Medications: Active Medications Albuterol/Ipratropium (Duoneb -) 1 amp NEB QIDR PRN PRN Reason: SHORTNESS OF BREATH Aspirin (Ecotrin -) 81 mg PO DAILY [facility] Last Admin: 12/30/16 09:07 Dose: 81 mg Atorvastatin Calcium (Lipitor -) 10 mg PO HS [facility] Last Admin: 12/30/16 21:54 Dose: 10 mg Diazepam (Valium -) 5 mg PO BID PRN Last Admin: 12/30/16 21:53 Dose: 5 mg Diltiazem HCl (Cardizem Cd -) 360 mg PO DAILY [facility] Last Admin: 12/30/16 09:07 Dose: 360 mg Heparin Sodium (Porcine) (Heparin -) 5,000 unit SQ TID [facility] Last Admin: 12/30/16 21:54 Dose: 5,000 unit Pantoprazole Sodium 40 mg/ (Sodium Chloride) 100 mls @ 200 mls/hr IVPB BID [facility] Stop: 12/31/16 00:00 Last Admin: 12/30/16 22:00 Dose: 200 mls/hr Insulin Aspart (Novolog Vial Sliding Scale -) 1 vial SQ ACHS [facility] PRN Reason: Protocol Last Admin: 12/30/16 21:59 Dose: 10 units Insulin Aspart (Novolog Mix 70/30 Vial) 15 units SQ HS [facility] Insulin Aspart (Novolog Mix 70/30 Vial) 30 units SQ AM [facility] Lisinopril (Prinivil) 5 mg PO DAILY [facility] Last Admin: 12/30/16 09:08 Dose: 5 mg Nicotine (Nicoderm Patch -) 21 mg TD DAILY [facility] Last Admin: 12/30/16 09:07 Dose: 21 mg Nitroglycerin (Nitrostat -) 0.4 mg SL PRN PRN PRN Reason: FOR CHEST PAIN Oxycodone/Acetaminophen (Percocet 5/325 -) 1 combo PO Q6H PRN PRN Reason: PAIN LEVEL 6-10 Pancrelipase (Creon Dr 36,000 Units Capsule) 1 cap PO TIDCM [facility] Last Admin: 12/30/16 17:46 Dose: 1 cap Pantoprazole Sodium (Protonix -) 40 mg PO DAILY [facility] Pregabalin (Lyrica -) 150 mg PO BID [facility] Last Admin: 12/30/16 21:55 Dose: 150 mg Quetiapine Fumarate (Seroquel -) 200 mg PO TID [facility] Last Admin: 12/30/16 21:56 Dose: 200 mg Simethicone (Mylicon -) 80 mg PO QID [facility] Last Admin: 12/30/16 21:56 Dose: 80 mg Thiamine HCl (Vitamin B1 -) 100 mg PO DAILY [facility] Last Admin: 12/30/16 09:08 Dose: 100 mg Venlafaxine HCl (Effexor -) 75 mg PO TID [facility] Last Admin: 12/30/16 21:55 Dose: 75 mg - Objective Vital Signs: Vital Signs Temperature 98.8 F 12/30/16 13:57 Pulse Rate 70 12/30/16 13:57 Respiratory Rate 18 12/30/16 13:57 Blood Pressure 127/63 12/30/16 13:57 O2 Sat by Pulse Oximetry (%) 97 12/30/16 09:00 Labs: CBC, BMP 12/30/16 07:40 12/30/16 18:15 INR, PTT INR 1.17 (0.82-1.09) H 12/30/16 07:40
[2016-12-30] MEDS ORDERED: ACETAMINOPHEN 325 MG TABLET (FP) PO PRN (22:22)
[2016-12-30] MEDS: oxyCODONE HCL 5 MG TABLET PO PRN (22:41)
[2016-12-31] MEDS ORDERED: ZOLPIDEM TARTRATE 5 MG TABLET PO PRN (00:43)
[2016-12-31] MEDS: QUEtiapine FUMARATE 100 MG TABLET (FP) PO SCH ×2 (06:32→14:40)
[2016-12-31] MEDS: HEPARIN NA (PORCINE) 5,000 UNITS/ML 1ML VIAL SQ SCH ×2 (06:33→14:39)
[2016-12-31] MEDS: oxyCODONE HCL 5 MG TABLET PO PRN ×2 (06:33→12:36)
[2016-12-31] MEDS: VENLAFAXINE HCL 75 MG TABLET PO SCH ×2 (06:34→14:40)
[2016-12-31] MEDS: INSULIN SLIDING SCALE (NOVOLOG) 1 VIAL SQ SCH ×2 (06:35→11:49)
[2016-12-31] MEDS ORDERED: INSULIN (NOVOLOG MIX 70/30) 100 UNITS/ML MDV SQ SCH (07:00)
[2016-12-31] MEDS ORDERED: PT OWN MED DRAWER 7, Y5N ONE ×3 (08:26→14:35)
[2016-12-31] MEDS: LIPASE/PROTEASE/AMYLASE 36,000 UNIT CAPSULE PO SCH ×2 (09:43→11:53)
[2016-12-31] MEDS: ASPIRIN COATED 81 MG TABLET.EC PO SCH (09:49)
[2016-12-31] MEDS: PREGABALIN 75 MG CAPSULE PO SCH (09:49)
[2016-12-31] MEDS: NICOTINE 21 MG/24 HOURS TOPICAL PATCH TD SCH (09:49)
[2016-12-31] MEDS: LISINOPRIL 5 MG TABLET (FP) PO SCH (09:49)
[2016-12-31] MEDS: SIMETHICONE 80 MG TAB.CHEW (FP) PO SCH ×2 (09:49→14:40)
[2016-12-31] MEDS ORDERED: PANTOPRAZOLE 40 MG TABLET (FP) PO SCH (10:00)
[2016-12-31] MEDS: THIAMINE HCL 100 MG TABLET (FP) PO SCH (10:07)
[2016-12-31 11:36] VITALS: BP 116/63; PULSE 90; TEMP 98.8
== END 2016-12-31 15:40 | disposition home or self-care (01) | DRG 282 ==
LOC: JER 17:34 → JERBED 12-29 06:36 → J8W 12-29 10:06
PROVIDERS: ADMIT Internal Medicine; ATTEND Internal Medicine
DX: K85.91 Acute pancreatitis with uninfected necrosis, unspecified (principal); K29.80 Duodenitis without bleeding; J43.9 Emphysema, unspecified; F11.20 Opioid dependence, uncomplicated; F14.10 Cocaine abuse, uncomplicated; F16.10 Hallucinogen abuse, uncomplicated; E11.40 Type 2 diabetes mellitus with diabetic neuropathy, unspecified; E87.6 Hypokalemia; E83.42 Hypomagnesemia; J45.909 Unspecified asthma, uncomplicated; I25.10 Atherosclerotic heart disease of native coronary artery without angina pectoris; I25.2 Old myocardial infarction; E78.5 Hyperlipidemia, unspecified; F31.9 Bipolar disorder, unspecified; Z96.651 Presence of right artificial knee joint; F17.210 Nicotine dependence, cigarettes, uncomplicated; Z79.4 Long term (current) use of insulin; F12.10 Cannabis abuse, uncomplicated; E11.65 Type 2 diabetes mellitus with hyperglycemia
CPT/HCPCS: 36415; 74150-TC; 74177-TC; 76705-TC; 80048; 80053; 80061; 80074; 80076; 80307; 81003; 81015; 82140; 82947; 83036; 83690; 83721; 83735; 84100; 85025; 85027; 85610; 85730; 87086; 93005; 93010; 94010; 97116-GP; 97161-GP; 99285-25; J1644

== ENCOUNTER 2017-03-19 14:56 | Emergency (ER) | payer OTHER ==
[2017-03-19 15:00] VITALS: BP 140/84; PULSE 107; TEMP 99.4; BMI 26.6
--- NOTE | 2017-03-19 15:59 | PDOC ---
History of Present Illness - General Chief Complaint: Vaginal Bleeding Stated Complaint: VAGINAL BLEEDING, PAIN Time Seen by Provider: 03/19/17 15:56 History Source: Patient Exam Limitations: No Limitations - History of Present Illness Initial Comments: 03/19/17 15:56 46 yo female, still having regular menses, had R ovary removed about a decade ago, presents with irregular vaginal bleeding and pain for the past 11 days. Also has history of Fibroids - and cysts on her left ovary. Saw Dr. Eatson on Sunday and was told she needed an US so that he could show her insurance company why she needed surgery, but the ultrasound is not scheduled til later this week and the pain and bleeding seemed to get worse. No other complaints or problems today. Timing/Duration: other (2 weeks) Severity: mild Modifying Factors: worse with: cold therapy, eating, immobilization, medication , movement, rest, other Associated Symptoms: denies: denies symptoms, chest pain, cough, diaphoresis, fever/chills, headaches, loss of appetite, malaise, nausea/vomiting, rash, seizure, shortness of breath, syncope, weakness, other Past History - Past Medical History Allergies/Adverse Reactions: Allergies Allergy/AdvReac Type Severity Reaction Status Date / Time levofloxacin [From Levaquin] Allergy Intermediate Rash Verified 12/28/16 17:47 aripiprazole [From Abilify] Allergy Mild Itching Verified 12/28/16 17:47 buspirone HCl [From BuSpar] Allergy Mild Itching Verified 12/28/16 17:47 medroxyprogesterone acetate Allergy Mild Itching Verified 12/28/16 17:47 [From Provera] trazodone Allergy Mild Itching Verified 12/28/16 17:47 ziprasidone HCl [From Geodon] Allergy Mild Itching Verified 12/28/16 17:47 ziprasidone mesylate Allergy Mild Itching Verified 12/28/16 17:47 [From Geodon] losartan potassium AdvReac Severe Elevated Verified 12/28/16 17:47 [From Cozaar] Blood Pressure bupropion HCl AdvReac Verified 12/28/16 17:47 [From Wellbutrin] Home Medications: Ambulatory Orders Multivitamin [Multivitamins] 1 each PO DAILY 11/19/12 Nitroglycerin Sublingual [Nitrostat -] 0.4 mg SL PRN PRN #0 tab 02/11/13 Insulin NPL/Insulin Lispro [Humalog Mix 75-25 Pen] 15 unit SQ HS 09/09/13 Insulin NPL/Insulin Lispro [Humalog Mix 75-25 Pen] 30 unit SQ AM 09/09/13 Aspirin Coated [Ecotrin -] 81 mg PO DAILY #30 tablet.ec 09/13/13 Loratadine [Claritin -] 10 mg PO DAILY #30 09/13/13 Pantoprazole Sodium [Protonix -] 40 mg PO DAILY #30 tablet.ec 09/13/13 Albuterol Sulfate Inhaler - [Ventolin HFA Inhaler -] 1 - 2 inh PO QID PRN Carvedilol 12.5 mg PO BID 05/31/16 Diltiazem Cd [Cardizem Cd -] 360 mg PO DAILY 05/31/16 Oxycodone HCl [Roxicodone -] 10 mg PO TID tablet MDD 3 06/14/16 Quetiapine Fumarate [Seroquel] 200 tab PO TID 07/07/16 Diazepam [Valium] 10 mg PO HS 12/28/16 Atorvastatin Calcium [Lipitor] 10 mg PO HS #14 tablet 12/29/16 Pregabalin [Lyrica -] 150 mg PO BID #10 cap MDD 2 12/29/16 Atorvastatin Ca [Lipitor] 10 mg PO HS #0 tablet 12/31/16 Diltiazem Cd [Cardizem Cd -] 360 mg PO DAILY #30 cap 12/31/16 Insulin (Novolog 70/30) [Novolog Mix 70/30 Vial -] 15 units SQ HS vial Pantoprazole Sodium [Protonix IV] 40 mg IVPB BID vial 12/31/16 Thiamine HCl [Vitamin B1 -] 100 mg PO DAILY tablet 12/31/16 Anemia: No Asthma: Yes (Pt is on MDI) Cancer: No Cardiac Disorders: Yes (CAD, ANGINA, DC, TACHYCARDIA) CVA: No COPD: Yes CHF: No Dementia: No Diabetes: Yes (Type II) Dialysis: No GI Disorders: No Disorders: No HTN: Yes Hypercholesterolemia: Yes Kidney Stones: No Liver Disease: No Psychiatric Problems: Yes (anxiety,depression) Seizures: No Thyroid Disease: No - Surgical History Abdominal Surgery: Yes (1 ovary removed) Appendectomy: No Cardiac Surgery: No Cholecystectomy: No Lung Surgery: No Neurologic Surgery: No Orthopedic Surgery: Yes (right knee replacement 06/27/12 [facility] [facility]) - Reproductive History Is Patient Now?: No PID: No - Immunization History Immunization Up to Date: Yes (no flu) - Suicide/Smoking/Psychosocial Hx Smoking Status: Yes Smoking History: Current every day smoker Have you smoked in the past 12 months: Yes Number of Cigarettes Smoked Daily: 10 If you are a former smoker, when did you quit?: 1 MO AGO Cigars Per Day: 0 Information on smoking cessation initiated: Yes 'Breaking Loose' booklet given: 03/19/17 Hx Alcohol Use: No Drug/Substance Use Hx: No Substance Use Type: None Hx Substance Use Treatment: Yes Review of Systems - Review of Systems Able to Perform ROS?: Yes Is the patient limited Danish proficient: No Constitutional: No: Symptoms Reported HEENTM: No: Symptoms Reported Respiratory: No: Symptoms reported Cardiac (ROS): No: Symptoms Reported ABD/GI: No: Symptoms Reported : Yes: See HPI Musculoskeletal: No: Symptoms Reported Integumentary: No: Symptoms Reported Neurological: No: Symptoms reported Psychiatric: No: Anxiety, Depression Endocrine: No: Symptoms Reported Hematologic/Lymphatic: No: Symptoms Reported All Other Systems: Reviewed and Negative *Physical Exam - Vital Signs Last Vital Signs Temp Pulse Resp BP Pulse Ox 99.4 F 107 H 18 140/84 100 03/19/17 14:58 03/19/17 14:58 03/19/17 14:58 03/19/17 14:58 03/19/17 14:58 - Physical Exam General Appearance: Yes: Appropriately Dressed. No: Apparent Distress HEENT: positive: Normal ENT Inspection, Normal Voice Neck: positive: Supple Respiratory/Chest: positive: Lungs Clear, Normal Breath Sounds Cardiovascular: positive: Regular Rhythm, Regular Rate. negative: Murmur Female Pelvic Exam: positive: other (Pt had pelvic just 3 days ago by her Team Driver Doctor, would prefer not to have another right now) Gastrointestinal/Abdominal: positive: Normal Bowel Sounds, Flat, Soft. 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
[2017-03-19 17:02] LABS: BASOPHIL 0.3 % (0-2.0); EOSINOPHIL 3.4 % (0-4.5); MCH 29.8 pg (25.7-33.7); MCHC 33.7 g/dl (32.0-36.0); MEAN CELL VOLUME 88.2 fl (80-96); MEAN PLT VOLUME 8.6 fl (7.5-11.1); NEUTROPHILS 60.9 % (42.8-82.8); PLATELET COUNT 288 K/MM3 (134-434); RDW 13.6 % (11.6-15.6); WHITE BLOOD COUNT 11.4 K/mm3 (4.0-10.0)
[2017-03-19 17:28] LABS: URINE APPEARANCE SLCLOUDY; URINE BILIRUBIN NEGATIVE (NEGATIVE); URINE BLOOD 3+ (NEGATIVE); URINE COLOR LTYELLOW; URINE GLUCOSE (UA) 3+ (NEGATIVE); URINE KETONE NEGATIVE (NEGATIVE); URINE NITRITE NEGATIVE (NEGATIVE); URINE PROTEIN NEGATIVE (NEGATIVE); URINE UROBILINOGEN NEGATIVE mg/dL (0.2-1.0)
[2017-03-19 17:32] LABS: INR 1.06 (0.82-1.09)
[2017-03-19 17:37] LABS: URINE MUCUS RARE; URINE RBC 1 /hpf (0-3); URINE WBC 1 /hpf (3-5)
[2017-03-19 17:44] LABS: ALBUMIN 3.4 g/dl (3.4-5.0); ALK PHOS 91 U/L (45-117); ANION GAP 9 (8-16); BILIRUBIN,TOTAL 0.1 mg/dL (0.2-1.0); CALCIUM 8.7 mg/dL (8.5-10.1); CO2 25 mmol/L (21-32); SGPT/ALT 14 U/L (12-78); TOT PROT 7.2 g/dl (6.4-8.2)
[2017-03-19 17:52] LABS: SGOT/AST 4 U/L (15-37)
[2017-03-19 17:53] LABS: GLUCOSE,RANDOM 359 mg/dL (74-106)
--- NOTE | 2017-03-19 18:42 | PDOC ---
*Physical Exam - Vital Signs Last Vital Signs Temp Pulse Resp BP Pulse Ox 99.4 F 107 H 18 140/84 100 03/19/17 14:58 03/19/17 14:58 03/19/17 14:58 03/19/17 14:58 03/19/17 14:58 ED Treatment Course - LABORATORY CBC & Chemistry Diagram: 03/19/17 16:50 03/19/17 16:50 - ADDITIONAL ORDERS Additional order review: Laboratory Results 03/19/17 03/19/17 03/19/17 16:50 16:50 16:50 PT with INR INR Sodium 134 L Potassium 3.3 L Chloride 100 Carbon Dioxide 25 Anion Gap 9 BUN 6 L D Creatinine 1.0 D Creat Clearance w eGFR 59.18 Random Glucose 359 H* Calcium 8.7 Total Bilirubin 0.1 L D AST 4 L D ALT 14 D Alkaline Phosphatase 91 Total Protein 7.2 Albumin 3.4 Serum , Qual Negative Urine Color Ltyellow Urine Appearance Slcloudy Urine pH 6.0 Urine Protein Negative Urine Glucose (UA) 3+ H Urine Ketones Negative Urine Blood 3+ H Urine Nitrite Negative Urine Bilirubin Negative Urine Urobilinogen Negative Urine RBC 1 Urine WBC 1 Ur Epithelial Cells Rare Urine Mucus Rare Blood Type A POSITIVE Antibody Screen Negative 03/19/17 16:50 PT with INR 12.00 H INR 1.06 Sodium Potassium Chloride Carbon Dioxide Anion Gap BUN Creatinine Creat Clearance w eGFR Random Glucose Calcium Total Bilirubin AST ALT Alkaline Phosphatase Total Protein Albumin Serum , Qual Urine Color Urine Appearance Urine pH Urine Protein Urine Glucose (UA) Urine Ketones Urine Blood Urine Nitrite Urine Bilirubin Urine Urobilinogen Urine RBC Urine WBC Ur Epithelial Cells Urine Mucus Blood Type Antibody Screen 03/19/17 16:50 RBC 3.96 MCV 88.2 MCHC 33.7 RDW 13.6 MPV 8.6 Neutrophils % 60.9 D Lymphocytes % 29.8 D Monocytes % 5.6 Eosinophils % 3.4 Basophils % 0.3 Medical Decision Making - Medical Decision Making 03/19/17 18:38 46-year-old female sent in by Dr. Miller to have an ultrasound for pelvic discomfort. Patient has past medical history significant for the fibroids Review of her CBC shows there is no anemia. Patient had left ovary removed in the past. There is no ovarian torsion noted in the right ovary. There is a small 1.1 x 1.3 cm fibroid. There is a complex ovarian cyst and there is concerned ruptured cyst with some mild free fluid in the pelvis Patient will call Dr. Easton tomorrow and follow-up this week Ashened ruptured ovarian cyst *DC/Admit/Observation/Transfer Diagnosis at time of Disposition: DUB (dysfunctional uterine bleeding), Cyst of right ovary Fibroid (bleeding) (uterine) Qualifiers: Uterine leiomyoma location: unspecified location Qualified Code(s): D25.9 - Leiomyoma of uterus, unspecified - Discharge Dispostion Disposition: HOME Condition at time of disposition: Stable - Referrals Referrals: Efe Rich MD [Primary Care Provider] - Stephen Miller MD [Staff Physician] - - Patient Instructions Printed Discharge Instructions: DI for Ovarian Cyst Additional Instructions: please see Dr Miller this week - Post Discharge Activity
[2017-03-19 20:48] LABS: URINE LEUK ESTERASE Negative (NEGATIVE)
== END 2017-03-19 18:49 | disposition home or self-care (01) ==
LOC: JER 14:56
DX: N93.8 Other specified abnormal uterine and vaginal bleeding (principal); D25.9 Leiomyoma of uterus, unspecified; N83.202 Unspecified ovarian cyst, left side; I25.119 Atherosclerotic heart disease of native coronary artery with unspecified angina pectoris; I10 Essential (primary) hypertension; F17.210 Nicotine dependence, cigarettes, uncomplicated; I25.2 Old myocardial infarction; E11.9 Type 2 diabetes mellitus without complications; Z79.4 Long term (current) use of insulin; E78.00 Pure hypercholesterolemia, unspecified; F41.8 Other specified anxiety disorders
CPT/HCPCS: 36415; 76830-TC; 80053; 81003; 81015; 84703; 85025; 85610; 86850; 86900; 86901; 87086; 99283-25

== ENCOUNTER 2017-09-01 11:07 | Emergency (ER) | payer OTHER ==
[2017-09-01 11:24] VITALS: BP 158/95; PULSE 100; TEMP 98.4; BMI 23.6
--- NOTE | 2017-09-01 11:51 | PDOC ---
History of Present Illness <Pato Cummins - Last Filed: 09/01/17 13:31> - General History Source: Patient Exam Limitations: No Limitations - History of Present Illness Initial Comments: The patient is a 46 year old female, with a significant PMH of COPD/emphysema, CAD with coronary vasospasms, hx of polysubstance abuse, hypertension, hyperlipidemia, and insulin dependent dm(poorly controlled) who presents to the emergency department with vaginal itching and bleeding for about 1 week. The patient reports associated suprapubic abdominal pain and dysuria, but denies any significant vaginal discharge, malodorous urine, hematuria, frequency, or urgency. She states that her vaginal itching has been discomforting and caused her to scratch. Patient reports her symptoms are similar to when shes had yeast infections in the past. Patient reports perimenopausal symptoms, and states she was recently started on Depo-provera. Patient states she is sexually active , and uses condoms regularly. The patient also reports an associated left sided headaches that was gradual onset, pounding mild in nature for which she took oxycodone this morning at 6am with no apparent relief. She denies any fever or chills and any blurry vision, numbness/tingling/weakness. She denies any nausea , vomiting, diarrhea, or constipation. She denies any chest pain, shortness of breath, diaphoresis, or palpitations. She reports being medically cleared for right knee surgery yesterday. Allergies: As per nursing notes Past Surgical History: Right Knee repair, oophorectomy Social History: Current everyday smoker. No ETOH or recreational drug use. <Moiz Willard - Last Filed: 09/01/17 15:55> - General Chief Complaint: Vaginal Sxs Stated Complaint: ABDOMINAL PAIN Time Seen by Provider: 09/01/17 11:17 Past History - Past Medical History Anemia: No Asthma: Yes (Pt is on MDI) Cancer: No Cardiac Disorders: Yes (CAD, ANGINA, [place], TACHYCARDIA) CVA: No COPD: Yes (emphysema) CHF: No Dementia: No Diabetes: Yes (Type II) Dialysis: No GI Disorders: No Disorders: No HTN: Yes Hypercholesterolemia: Yes Kidney Stones: No Liver Disease: No Psychiatric Problems: Yes (anxiety,depression, agoraphobia) Seizures: No Thyroid Disease: No - Surgical History Abdominal Surgery: Yes (1 ovary removed) Appendectomy: No Cardiac Surgery: No Cholecystectomy: No Lung Surgery: No Neurologic Surgery: No Orthopedic Surgery: Yes (right knee replacement 06/27/12 [facility]) - Reproductive History PID: No - Immunization History Immunization Up to Date: Yes (no flu) - Suicide/Smoking/Psychosocial Hx Smoking Status: Yes Smoking History: Current every day smoker Have you smoked in the past 12 months: Yes Number of Cigarettes Smoked Daily: 20 If you are a former smoker, when did you quit?: 1 MO AGO Cigars Per Day: 0 Information on smoking cessation initiated: No 'Breaking Loose' booklet given: 03/19/17 Hx Alcohol Use: No Drug/Substance Use Hx: No Substance Use Type: None Hx Substance Use Treatment: Yes <Pato Cummins - Last Filed: 09/01/17 13:31> <Moiz Willard - Last Filed: 09/01/17 15:55> - Past Medical History Allergies/Adverse Reactions: Allergies Allergy/AdvReac Type Severity Reaction Status Date / Time levofloxacin [From Levaquin] Allergy Intermediate Rash Verified 09/01/17 11:16 aripiprazole [From Abilify] Allergy Mild Itching Verified 09/01/17 11:16 buspirone HCl [From BuSpar] Allergy Mild Itching Verified 09/01/17 11:16 medroxyprogesterone acetate Allergy Mild Itching Verified 09/01/17 11:16 [From Provera] trazodone Allergy Mild Itching Verified 09/01/17 11:16 ziprasidone HCl [From Geodon] Allergy Mild Itching Verified 09/01/17 11:16 ziprasidone mesylate Allergy Mild Itching Verified 09/01/17 11:16 [From Geodon] losartan potassium AdvReac Severe Elevated Verified 09/01/17 11:16 [From Cozaar] Blood Pressure bupropion HCl AdvReac Verified 09/01/17 11:16 [From Wellbutrin] Home Medications: Ambulatory Orders Multivitamin [Multivitamins] 1 each PO DAILY 11/19/12 Nitroglycerin Sublingual [Nitrostat -] 0.4 mg SL PRN PRN #0 tab 02/11/13 Aspirin Coated [Ecotrin -] 81 mg PO DAILY #30 tablet.ec 09/13/13 Loratadine [Claritin -] 10 mg PO DAILY #30 09/13/13 Pantoprazole Sodium [Protonix -] 40 mg PO DAILY #30 tablet.ec 09/13/13 oxyCODONE HCL [Roxicodone -] 10 mg PO TID tablet MDD 3 06/14/16 Quetiapine Fumarate [Seroquel] 300 tab PO HS 07/07/16 Diazepam [Valium] 5 mg PO PRN 12/28/16 Pregabalin [Lyrica -] 150 mg PO BID #10 cap MDD 2 12/29/16 Diltiazem Cd [Cardizem Cd -] 360 mg PO DAILY #30 cap 12/31/16 Atorvastatin Calcium [Lipitor] 10 mg PO AM 03/19/17 Bisacodyl [Dulcolax] 5 mg PO TID 03/19/17 Insulin Glargine,Hum.rec.anlog [Lantus Solostar PEN (NF)] 24 units SQ HS [place] Carbonate [Eskalith -] 600 mg PO HS 03/19/17 [place] Carbonate [Lithobid] 300 mg PO DAILY 03/19/17 Metformin HCl [Glucophage] 1,000 mg PO BID 03/19/17 Budesonide/Formeterol Fumarate [SYMBICORT 160/4.5mcg -] 1 inh PO DAILY 09/01/17 Clotrimazole [Clotrimazole-7] 45 gm VG DAILY #1 cream.appl 09/01/17 Quetiapine Fumarate [Seroquel] 200 tab PO DAILY 09/01/17 Abd/GI Specific PMHX - Complaint Specific PMHX Hepatitis: No Pancreatitis: No <Pato Cummins - Last Filed: 09/01/17 13:31> Review of Systems - Review of Systems Able to Perform ROS?: Yes Comments:: Constitutional - Pt denies Fever, Chills, weakness, HEENT: denies vision changes, sore throat Respiratory: Denies cough, sob, hemoptysis Cardiac: denies chest pain, palpitations, light headedness, leg swelling Abd/GI: denies abd pain, nausea, vomiting, blood per rectum, melena, diarrhea : +vaginal discharge denies dysuria, frequency, discharge Musculoskelatal - denies back pain, joint swelling skin - denies bruising, erythema, rash neurological:(+)headache. Denies numbness, focal weakness, tingling, ataxia, weakness hematologic: denies anemia, easy bruising, easy bleeding <Moiz Willard - Last Filed: 09/01/17 15:55> *Physical Exam - Vital Signs Last Vital Signs Temp Pulse Resp BP Pulse Ox 98.4 F 100 H 18 158/95 98 09/01/17 11:12 09/01/17 11:12 09/01/17 11:12 09/01/17 11:12 09/01/17 11:12 <Maria GPato tobias - Last Filed: 09/01/17 13:31> - Vital Signs Last Vital Signs Temp Pulse Resp BP Pulse Ox 98.4 F 100 H 18 158/95 98 09/01/17 11:12 09/01/17 11:12 09/01/17 11:12 09/01/17 11:12 09/01/17 11:12 - Physical Exam Comments: GENERAL: The patient is awake, alert, and fully oriented, Nontoxic - in no acute distress. HEAD: Normocephalic, atraumatic. EYES: extraocular movements intact, sclera anicteric, conjunctiva clear. ENT: Normal voice, Moist mucous membranes. NECK: Normal range of motion, LUNGS: Breath sounds equal, clear to auscultation bilaterally. No wheezes, no crackles, no rales. HEART: Regular rate and rhythm, normal S1 and S2 without murmur, rub or gallop. ABDOMEN: Soft, nontender, normoactive bowel sounds. No guarding, no rebound. No masses. PELVIC: (+) Mild blood in vaginal vault, scant whitish dicharge, Abrasion to superior portion of clitoris. No CMT. No adnexal tenderness EXTREMITIES: Normal range of motion, no edema. No clubbing or cyanosis. No cords, erythema, or tenderness. NEUROLOGICAL: No facial asymmetry, Normal speech, normal gait. PSYCH: Normal mood, normal affect. <Moiz Willard - Last Filed: 09/01/17 15:55> ED Treatment Course - ADDITIONAL ORDERS Additional order review: Laboratory Results 09/01/17 09/01/17 12:20 11:56 POC Glucometer > 400 Urine Color Ltyellow Urine Appearance Clear Urine pH 6.0 Ur Specific Hanna 1.023 Urine Protein Negative Urine Glucose (UA) 3+ H Urine Ketones Negative Urine Blood 1+ H Urine Nitrite Negative Urine Bilirubin Negative Urine Urobilinogen Negative Ur Leukocyte Esterase Trace Urine WBC (Auto) 8 Urine RBC (Auto) 2 Ur Epithelial Cells Rare Urine Mucus Rare Urine HCG, Qual Negative 09/01/17 12:20 POC Glucometer > 400 - Medications Given in the ED: ED Medications Discontinued Medications Generic Name Dose Route Start Last Admin Trade Name Sidra PRN Reason Stop Dose Admin Ibuprofen 400 mg 09/01/17 12:29 09/01/17 13:03 Motrin - PO 09/01/17 12:30 Not Given ONCE ONE <Moiz Willard - Last Filed: 09/01/17 15:55> Medical Decision Making - Medical Decision Making 09/01/17 12:17 46y F hx of COPD/emphasema, cad with coronary vasospasms, hx of polysubstance abuse, htn, hl, insullin dependent bm, presents with complaint of vaginal itching. The patient endorses have some vaginal itching for the past several days dina resulted in her scratching her clitoris and is sometimes painful/ pt dnies any focal discharge, but does endorses ome bleeding. pt denies any fever/ chills, foul smelling discharge, pt notes she does have poorly controled blood sguar and isnt complaint with her insuln. she denies any frequent urination n/v , increase thirst. pts BGM elevated to 400s but she declines lab work nad management of her blood suguar conscern for possible dka however UA is negative for ketones pt accepts risk of leaving without further management of her blood suguar will give pt rx for clotrimazole will dc with pmd fu Patient is alert and oriented, and expressed that they would like to leave AGAINST MEDICAL ADVICE. I discussed with them the risks of leaving include , increasing metabolic derangement, permanent disability. Patient states he would like to leave because she does not want blood work. I believe that the patient understands our discussion and is capable of making an informed decision about leaving against medical advice. I also discussed with the patient that they may return at any time to complete their workup. <Pato Cummins - Last Filed: 09/01/17 13:31> *DC/Admit/Observation/Transfer - Discharge Dispostion Admit: No <Pato Cummins - Last Filed: 09/01/17 13:31> - Attestations Scribe Attestion: 09/01/17 15:08 Documentation prepared by Moiz Willard, acting as medical intern for Pato Cummins MD. <Moiz Willard - Last Filed: 09/01/17 15:55> Diagnosis at time of Disposition: Hyperglycemia, Vaginal itching - Discharge Dispostion Disposition: AGAINST MEDICAL ADVICE Condition at time of disposition: Stable - Prescriptions Prescriptions: Clotrimazole [Clotrimazole-7] 45 gm VG DAILY #1 cream.appl - Referrals Referrals: Efe Rich MD [Primary Care Provider] - - Patient Instructions Additional Instructions: You are leaving against medical advice Your blood sugar was very high and we wnated to ensure that your blood sugur is under control and there is nothing more dangerous going on. You refused shanae blood work and you understand the risk of not staying for further workup. Please take your insulin as prescribed and check your blood sugar, follow up with your doctor on sunday. return at any time if you want to get your blood work or change your mind regarding the blood work and evaluation . Print Language: SAMI - Post Discharge Activity
[2017-09-01] MEDS ORDERED: IBUPROFEN 400 MG TABLET (FP) PO ONE (12:29)
[2017-09-01 12:36] LABS: URINE APPEARANCE CLEAR; URINE BILIRUBIN NEGATIVE (<2.0 mg/dL); URINE BLOOD 1+ (NEGATIVE); URINE COLOR LTYELLOW; URINE GLUCOSE (UA) 3+ (NEGATIVE); URINE KETONE NEGATIVE (NEGATIVE); URINE LEUK ESTERASE TRACE (NEGATIVE); URINE NITRITE NEGATIVE (NEGATIVE); URINE PROTEIN NEGATIVE (NEGATIVE); URINE UROBILINOGEN NEGATIVE mg/dL (0.2-1.0)
[2017-09-01 12:38] LABS: HCG,QUALITATIVE URINE NEGATIVE
[2017-09-01 12:58] LABS: EPI CELLS RARE /HPF (FEW); URINE MUCUS RARE
== END 2017-09-01 13:45 | disposition left against medical advice (07) ==
LOC: JER 11:07
DX: L29.2 Pruritus vulvae (principal); E11.65 Type 2 diabetes mellitus with hyperglycemia; Z79.4 Long term (current) use of insulin; J43.8 Other emphysema; I25.10 Atherosclerotic heart disease of native coronary artery without angina pectoris; I10 Essential (primary) hypertension; F17.210 Nicotine dependence, cigarettes, uncomplicated
CPT/HCPCS: 81003; 81015; 82962; 84703; 99282-25

== ENCOUNTER 2018-03-11 16:01 | Emergency (ER) | payer OTHER ==
--- NOTE | 2018-03-11 16:09 | PDOC ---
Rapid Medical Evaluation Chief Complaint: Pain Time Seen by Provider: 03/11/18 16:07 Medical Evaluation: Allergies Allergy/AdvReac Type Severity Reaction Status Date / Time levofloxacin [From Levaquin] Allergy Intermediate Rash Verified 12/01/17 21:51 aripiprazole [From Abilify] Allergy Mild Itching Verified 12/01/17 21:51 buspirone HCl [From BuSpar] Allergy Mild Itching Verified 12/01/17 21:51 medroxyprogesterone acetate Allergy Mild Itching Verified 12/01/17 21:51 [From Provera] trazodone Allergy Mild Itching Verified 12/01/17 21:51 ziprasidone HCl [From Geodon] Allergy Mild Itching Verified 12/01/17 21:51 ziprasidone mesylate Allergy Mild Itching Verified 12/01/17 21:51 [From Geodon] losartan potassium AdvReac Severe Elevated Verified 12/01/17 21:51 [From Cozaar] Blood Pressure bupropion HCl AdvReac Verified 12/01/17 21:51 [From Wellbutrin] 03/11/18 16:07 I have performed a brief in person evaluation of this patient. The patient presents with a chief complaint of: abdominal pain Pt is a 47 YO female who states that over the past week she has had abdominal pain. Pertinent PE: Skin: Clear Lungs: Clear Heart: RRR Abd: diffuse tenderness, no guarding. MS: Moves all extremities without difficulty. Neuro: Alert and oriented Psych: Appropriate affect I have ordered the following: abdominal labs The patient will proceed to: pt will go to the main ED for further evaluation. Discharge Disposition - Diagnosis Abdominal pain Qualifiers: Abdominal location: generalized Qualified Code(s): R10.84 - Generalized abdominal pain - Referrals Referrals: Efe Rich MD [Primary Care Provider] - - Patient Instructions - Post Discharge Activity
[2018-03-11 16:14] VITALS: BP 130/92; PULSE 104; TEMP 99.3; BMI 24.3
--- NOTE | 2018-03-11 21:10 | PDOC ---
History of Present Illness - General Chief Complaint: Pain Stated Complaint: Cold Symptoms Time Seen by Provider: 03/11/18 16:07 History Source: Patient - History of Present Illness Initial Comments: 03/11/18 21:44 47 year old female with history of HTN, HLD, DC, CAD, diabetes, peripheral neuropathy, chronic back pain(pt sees pain management physician), OA(with multiple surgeries on her knees), PTSD, bipolar dz and COPD s/p cough congestion , upper abdominal cramping worse with cough Past History - Past Medical History Allergies/Adverse Reactions: Allergies Allergy/AdvReac Type Severity Reaction Status Date / Time levofloxacin [From Levaquin] Allergy Intermediate Rash Verified 03/11/18 16:07 aripiprazole [From Abilify] Allergy Mild Itching Verified 03/11/18 16:07 buspirone HCl [From BuSpar] Allergy Mild Itching Verified 03/11/18 16:07 medroxyprogesterone acetate Allergy Mild Itching Verified 03/11/18 16:07 [From Provera] trazodone Allergy Mild Itching Verified 03/11/18 16:07 ziprasidone HCl [From Geodon] Allergy Mild Itching Verified 03/11/18 16:07 ziprasidone mesylate Allergy Mild Itching Verified 03/11/18 16:07 [From Geodon] losartan potassium AdvReac Severe Elevated Verified 03/11/18 16:07 [From Cozaar] Blood Pressure bupropion HCl AdvReac Verified 03/11/18 16:07 [From Wellbutrin] Home Medications: Ambulatory Orders Multivitamin [Multivitamins] 1 each PO DAILY 11/19/12 Nitroglycerin Sublingual [Nitrostat -] 0.4 mg SL PRN PRN #0 tab 02/11/13 Aspirin Coated [Ecotrin -] 81 mg PO DAILY #30 tablet.ec 09/13/13 Loratadine [Claritin -] 10 mg PO DAILY #30 09/13/13 Pantoprazole Sodium [Protonix -] 40 mg PO DAILY #30 tablet.ec 09/13/13 oxyCODONE HCL [Roxicodone -] 10 mg PO TID tablet MDD 3 06/14/16 Quetiapine Fumarate [Seroquel] 300 tab PO HS 07/07/16 Diazepam [Valium] 5 mg PO PRN 12/28/16 Pregabalin [Lyrica -] 150 mg PO BID #10 cap MDD 2 12/29/16 Diltiazem Cd [Cardizem Cd -] 360 mg PO DAILY #30 cap 12/31/16 Atorvastatin Calcium [Lipitor] 10 mg PO AM 03/19/17 Bisacodyl [Dulcolax] 5 mg PO TID 03/19/17 Insulin Glargine,Hum.rec.anlog [Lantus Solostar PEN (NF)] 24 units SQ HS [place] Carbonate [Eskalith -] 600 mg PO HS 03/19/17 [place] Carbonate [Lithobid] 300 mg PO DAILY 03/19/17 Metformin HCl [Glucophage] 1,000 mg PO BID 03/19/17 Budesonide/Formeterol Fumarate [SYMBICORT 160/4.5mcg -] 1 inh PO DAILY 09/01/17 Clotrimazole [Clotrimazole-7] 45 gm VG DAILY #1 cream.appl 09/01/17 Quetiapine Fumarate [Seroquel] 200 tab PO DAILY 09/01/17 Amoxicillin/Potassium Clav [Augmentin 875-125 Tablet] 1 each PO BID #20 tablet 03/12/18 Mag Hydrox/Al Hydrox/Simeth [Mylanta Suspension -] 30 ml PO Q6H #1 bottle Magnesium Citrate [Citroma -] 150 ml PO BID #1 bottle 03/12/18 Polyethylene Glycol 3350 [Miralax (For Daily Use) -] 17 gm PO DAILY #1 bottle Anemia: No Asthma: Yes (Pt is on MDI) Cancer: No Cardiac Disorders: Yes (CAD, ANGINA, [place], TACHYCARDIA) CVA: No COPD: Yes CHF: Yes Dementia: No Diabetes: Yes (Type II) Dialysis: No GI Disorders: No Disorders: No HTN: Yes Hypercholesterolemia: Yes Kidney Stones: No Liver Disease: No Psychiatric Problems: Yes (anxiety,depression) Seizures: No Thyroid Disease: No - Surgical History Abdominal Surgery: Yes (1 ovary removed) Appendectomy: No Cardiac Surgery: No Cholecystectomy: No Lung Surgery: No Neurologic Surgery: No Orthopedic Surgery: Yes (right knee replacement 06/27/12 [facility],[employer]) - Reproductive History PID: No - Immunization History Immunization Up to Date: Yes (no flu) - Suicide/Smoking/Psychosocial Hx Smoking Status: Yes Smoking History: Current every day smoker Have you smoked in the past 12 months: Yes Number of Cigarettes Smoked Daily: 10 If you are a former smoker, when did you quit?: 1 MO AGO Cigars Per Day: 0 Information on smoking cessation initiated: Yes 'Breaking Loose' booklet given: 03/11/18 Hx Alcohol Use: No Drug/Substance Use Hx: Yes (COCCAINE,DUST) Substance Use Type: None Hx Substance Use Treatment: Yes *Physical Exam - Vital Signs Last Vital Signs Temp Pulse Resp BP Pulse Ox 99.3 F 104 H 20 130/92 100 03/11/18 16:08 03/11/18 16:08 03/11/18 16:08 03/11/18 16:08 03/11/18 16:08 - Physical Exam General Appearance: Yes: Appropriately Dressed Respiratory/Chest: positive: Normal Breath Sounds, Other (moist cough) Cardiovascular: positive: Tachycardia Gastrointestinal/Abdominal: positive: Normal Bowel Sounds, Tender (RUQ), Soft Extremity: positive: Normal Capillary Refill, Normal Inspection, Normal Range of Motion Integumentary: positive: Normal Color, Dry, Warm Neurologic: positive: Fully Oriented, Alert ED Treatment Course - LABORATORY CBC & Chemistry Diagram: 03/11/18 22:25 03/12/18 00:05 - RADIOLOGY Radiology Studies Ordered: Category Date Time Status CHEST PA & LAT [RAD] Stat Radiology 03/11/18 21:06 Ordered Medical Decision Making - Medical Decision Making 03/12/18 01:38 PAtient is alert c/o upper quadrant abdominal pain. no vomiting tolerated PO sandwich. patient reports that she drank non diet soda. BGM: 400. will cover with insulin, 03/12/18 02:46 v/s : 98.3 b/p 143/83; HR: 84 o2 sat : 100%. 03/12/18 02:58 patient is c/o RUQ pain will CTAp r/o acute process 03/12/18 04:15 03/12/18 04:10 CTAP: Findings as well as symptoms discussed with nurse practitioner Gerardo. No bowel obstruction or inflammation. There is sludge in the appendix. The distal appendix is dilated up to 1 cm but no appendiceal or periappendiceal inflammation is noted. Correlate with any right lower quadrant pain. I am informed that the pain is upper quadrant not right lower quadrant. Followup recommended if the patient develops pain in the right lower quadrant pain or symptoms of appendicitis. Negative for colitis or diverticulitis. No urinary tract stone or obstruction. CONFIDENTIALITY NOTICE: This information is Normal liver. Normal spleen. There is some haziness of the fat around the pancreatic head which can be seen in pancreatitis. However I am informed that the lipase is normal. No obvious gallbladder abnormalities. 3.9 cm x 2.2 cm right adnexal cyst. Sclerotic foci in the L4 and L5 vertebral bodies. Probably degenerative but followup recommended to make sure not neoplastic. Blebs noted at the right lung base. Note also made of multiple particulate matter in the small intestine. Uncertain origin. I have recommended to question the patient about but they have been eating. *DC/Admit/Observation/Transfer Diagnosis at time of Disposition: Bronchitis Abdominal pain Qualifiers: Abdominal location: generalized Qualified Code(s): R10.84 - Generalized abdominal pain Constipation Qualifiers: Constipation type: unspecified constipation type Qualified Code(s): K59.00 - Constipation, unspecified - Discharge Dispostion Disposition: HOME - Prescriptions Prescriptions: Amoxicillin/Potassium Clav [Augmentin 875-125 Tablet] 1 each PO BID #20 tablet Mag Hydrox/Al Hydrox/Simeth [Mylanta Suspension -] 30 ml PO Q6H #1 bottle Magnesium Citrate [Citroma -] 150 ml PO BID #1 bottle Polyethylene Glycol 3350 [Miralax (For Daily Use) -] 17 gm PO DAILY #1 bottle - Referrals Referrals: Efe Rich MD [Primary Care Provider] - Call tomorrow Temo Hernandez MD [Staff Physician] - Call tomorrow - Patient Instructions Printed Discharge Instructions: Cough Additional Instructions: please follow up with your primary doctor as soon as possible. take Augmentin as prescribed. take miralax as prescribed. follow up with your doctor as soon as possible. - Post Discharge Activity Forms/Work/School Notes: Back to Work
[2018-03-11] MEDS ORDERED: ALBUTEROL SO4 2.5/IPRATROPIUM 0.5 INH SOL 3 ML VIAL.NEB. NEB ONE ×2 (21:20→21:59)
[2018-03-11] MEDS ORDERED: ACETAMINOPHEN 325 MG TABLET (FP) PO ONE (21:20)
[2018-03-11] MEDS ORDERED: ACETAMINOPHEN 325 MG TABLET (FP) ONE (21:58)
[2018-03-11 22:54] LABS: BASO % 0.6 % (0-2.0); EOS % 3.2 % (0-4.5); HEMATOCRIT 36.3 % (32.4-45.2); HEMOGLOBIN 12.1 GM/dL (10.7-15.3); MCH 29.1 pg (25.7-33.7); MCHC 33.2 g/dl (32.0-36.0); MEAN CELL VOLUME 87.5 fl (80-96); NEUT % 66.2 % (42.8-82.8); PLATELET COUNT 395 K/MM3 (134-434); RBC 4.15 M/mm3 (3.60-5.2); RDW 13.7 % (11.6-15.6); WHITE BLOOD COUNT 13.4 K/mm3 (4.0-10.0)
[2018-03-12] MEDS ORDERED: FAMOTIDINE 20 MG/50 ML IVPB 20 MG/50 ML MG IVPB ONE ×2 (00:41→00:49)
[2018-03-12] MEDS ORDERED: MAG HYDROX/AL HYDROX/SIMETH 30 ML UNIT-DOSE CUP PO ONE (00:41)
[2018-03-12] MEDS ORDERED: MAG HYDROX/AL HYDROX/SIMETH 30 ML UNIT-DOSE CUP ONE (00:49)
[2018-03-12 00:54] LABS: ALBUMIN 3.4 g/dl (3.4-5.0); ALK PHOS 107 U/L (45-117); ANION GAP 6 MMOL/L (8-16); BILIRUBIN,TOTAL 0.3 mg/dL (0.2-1); BLOOD UREA NITROGEN 8 mg/dL (7-18); CALCIUM 9.1 mg/dL (8.5-10.1); CHLORIDE 95 mmol/L (98-107); CO2 30 mmol/L (21-32); LIPASE 107 U/L (73-393); N-TERMINAL BNP 21.4 pg/ml (5-125); POTASSIUM 4.2 mmol/L (3.5-5.1); SGOT/AST 13 U/L (15-37); SGPT/ALT 22 U/L (13-61); SODIUM 131 mmol/L (136-145); TOT PROT 7.5 g/dl (6.4-8.2)
[2018-03-12 00:56] LABS: GLUCOSE,RANDOM 405 mg/dL (74-106)
[2018-03-12] MEDS ORDERED: INSULIN REGULAR HUMAN 100 UNITS/ML *VIAL IVPUSH ONE (01:26)
[2018-03-12] MEDS ORDERED: AMOX TR/POT CLAV 875MG/125MG TABLETS (FP) PO ONE (01:41)
[2018-03-12] MEDS ORDERED: SODIUM CHLORIDE 0.9% 500 ML INFUS.BAG IV ONE (01:41)
[2018-03-12] MEDS ORDERED: AMOX TR/POT CLAV 875MG/125MG TABLETS (FP) ONE (01:59)
[2018-03-12] MEDS ORDERED: INSULIN REGULAR HUMAN 100 UNITS/ML *VIAL ONE ×3 (02:22→02:24)
--- NOTE | 2018-03-12 12:39 | EKG ---
Test Reason : Blood Pressure : / mmHG Vent. Rate : 077 BPM Atrial Rate : 077 BPM P-R Int : 186 ms QRS Dur : 082 ms QT Int : 416 ms P-R-T Axes : 023 063 063 degrees QTc Int : 470 ms NORMAL SINUS RHYTHM CANNOT RULE OUT ANTERIOR INFARCT , AGE UNDETERMINED ABNORMAL ECG Confirmed by MD DAVID, SHUBHAM ([id number]) on 03/12/2018 12:39:04 PM Referred By: Confirmed By:SHUBHAM HERNANDEZ MD
== END 2018-03-12 08:14 | disposition home or self-care (01) ==
LOC: JER 16:01
PROC: 3E0F7GC Introduction of Other Therapeutic Substance into Respiratory Tract, Via Natural or Artificial Opening (ICD-10-PCS; principal; 2018-03-11)
PROC: 3E033GC Introduction of Other Therapeutic Substance into Peripheral Vein, Percutaneous Approach (ICD-10-PCS; 2018-03-11)
PROC: 3E033VG Introduction of Insulin into Peripheral Vein, Percutaneous Approach (ICD-10-PCS; 2018-03-11)
DX: R10.84 Generalized abdominal pain (principal); E11.9 Type 2 diabetes mellitus without complications; Z79.84 Long term (current) use of oral hypoglycemic drugs; E78.00 Pure hypercholesterolemia, unspecified; I25.119 Atherosclerotic heart disease of native coronary artery with unspecified angina pectoris; I10 Essential (primary) hypertension; I25.2 Old myocardial infarction; G62.9 Polyneuropathy, unspecified; M19.90 Unspecified osteoarthritis, unspecified site; F41.8 Other specified anxiety disorders; Z96.651 Presence of right artificial knee joint; Z88.0 Allergy status to penicillin; Z88.8 Allergy status to other drugs, medicaments and biological substances; F43.10 Post-traumatic stress disorder, unspecified; J44.9 Chronic obstructive pulmonary disease, unspecified; F31.9 Bipolar disorder, unspecified
CPT/HCPCS: 36415; 71046-TC-FY; 74176-TC; 76705-TC; 80053; 83690; 83880; 84484; 84703; 85025; 93005; 93010; 94640; 96365; 96375; 99282-25

== ENCOUNTER 2018-12-16 22:39 | Emergency (ER) | payer OTHER ==
[2018-12-16 23:52] VITALS: TEMP 97.4; BMI 19.5
--- NOTE | 2018-12-17 00:57 | PDOC ---
History of Present Illness - General Chief Complaint: Blood Sugar Problem Stated Complaint: BLOOD SUGAR PROBLEM Time Seen by Provider: 12/17/18 00:52 - History of Present Illness Initial Comments: 12/17/18 00:55 48 yo F with h/o HTN, HLD, poorly controlled IDDM, CAD, MO, Peripheral neuropathy, chronic back pain, OA, PTSD, Bipolar dz., COPD who p/w hyperglycemia. Patient reports home BS~600, at approximately 1100 PM today. States that her home glucometer read " high," which patient interprets as over 600. Patient adherent to 20 U insulin daily. Patient endorses 3 months of intermittent lightheadedness, leg pain and swelling. Patient denies PORTILLO, vision change, palpitations, cough, wheezing, orthopena, PND , N/V, F,C, CP, SOB, urinary complaints, hematuria, BPR, abdominal pain, diarrhea, constipation,, weakness, sensory changes. PMHx: as noted above. Denies h/o DVT/PE. ROS: as noted SHx: Denies Etoh, IVDA, tobacco use Allergies: NKDA Past History - Past Medical History Allergies/Adverse Reactions: Allergies Allergy/AdvReac Type Severity Reaction Status Date / Time levofloxacin [From Levaquin] Allergy Intermediate Rash Verified 03/11/18 16:07 aripiprazole [From Abilify] Allergy Mild Itching Verified 03/11/18 16:07 buspirone HCl [From BuSpar] Allergy Mild Itching Verified 03/11/18 16:07 medroxyprogesterone acetate Allergy Mild Itching Verified 03/11/18 16:07 [From Provera] trazodone Allergy Mild Itching Verified 03/11/18 16:07 ziprasidone HCl [From Geodon] Allergy Mild Itching Verified 03/11/18 16:07 ziprasidone mesylate Allergy Mild Itching Verified 03/11/18 16:07 [From Geodon] losartan potassium AdvReac Severe Elevated Verified 03/11/18 16:07 [From Cozaar] Blood Pressure bupropion HCl AdvReac Verified 03/11/18 16:07 [From Wellbutrin] Home Medications: Ambulatory Orders Multivitamin [Multivitamins] 1 each PO DAILY 11/19/12 Nitroglycerin Sublingual [Nitrostat -] 0.4 mg SL PRN PRN #0 tab 02/11/13 Aspirin Coated [Ecotrin -] 81 mg PO DAILY #30 tablet.ec 09/13/13 Loratadine [Claritin -] 10 mg PO DAILY #30 09/13/13 Pantoprazole Sodium [Protonix -] 40 mg PO DAILY #30 tablet.ec 09/13/13 oxyCODONE HCL [Roxicodone -] 10 mg PO TID tablet MDD 3 06/14/16 Quetiapine Fumarate [Seroquel] 300 tab PO HS 07/07/16 Diazepam [Valium] 5 mg PO PRN 12/28/16 Pregabalin [Lyrica -] 150 mg PO BID #10 cap MDD 2 12/29/16 Diltiazem Cd [Cardizem Cd -] 360 mg PO DAILY #30 cap 12/31/16 Atorvastatin Calcium [Lipitor] 10 mg PO AM 03/19/17 Bisacodyl [Dulcolax] 5 mg PO TID 03/19/17 Insulin Glargine,Hum.rec.anlog [Lantus Solostar PEN (NF)] 24 units SQ HS [place] Carbonate [Eskalith -] 600 mg PO HS 03/19/17 [place] Carbonate [Lithobid] 300 mg PO DAILY 03/19/17 Metformin HCl [Glucophage] 1,000 mg PO BID 03/19/17 Budesonide/Formeterol Fumarate [SYMBICORT 160/4.5mcg -] 1 inh PO DAILY 09/01/17 Clotrimazole [Clotrimazole-7] 45 gm VG DAILY #1 cream.appl 09/01/17 Quetiapine Fumarate [Seroquel] 200 tab PO DAILY 09/01/17 Mag Hydrox/Al Hydrox/Simeth [Mylanta Suspension -] 30 ml PO Q6H #1 bottle Magnesium Citrate [Citroma -] 150 ml PO BID #1 bottle 03/12/18 Polyethylene Glycol 3350 [Miralax (For Daily Use) -] 17 gm PO DAILY #1 bottle Anemia: No Asthma: Yes (Pt is on MDI) Cancer: No Cardiac Disorders: Yes (CAD, ANGINA, MO, TACHYCARDIA) CVA: No COPD: Yes CHF: Yes Dementia: No Diabetes: Yes (Type II) Dialysis: No GI Disorders: No Disorders: No HTN: Yes Hypercholesterolemia: Yes Kidney Stones: No Liver Disease: No Psychiatric Problems: Yes (anxiety,depression) Seizures: No Thyroid Disease: No - Surgical History Abdominal Surgery: Yes (1 ovary removed) Appendectomy: No Cardiac Surgery: No Cholecystectomy: No Lung Surgery: No Neurologic Surgery: No Orthopedic Surgery: Yes (right knee replacement 06/27/12 [facility],[employer] [facility] [facility]) - Reproductive History PID: No - Immunization History Immunization Up to Date: Yes (no flu) - Suicide/Smoking/Psychosocial Hx Smoking Status: Yes Smoking History: Current every day smoker Have you smoked in the past 12 months: Yes Number of Cigarettes Smoked Daily: 14 If you are a former smoker, when did you quit?: 1 MO AGO Cigars Per Day: 0 Information on smoking cessation initiated: Yes 'Breaking Loose' booklet given: 03/11/18 Hx Alcohol Use: Yes Drug/Substance Use Hx: No Substance Use Type: None Hx Substance Use Treatment: Yes Review of Systems - Review of Systems Comments:: 12/17/18 00:56 GENERAL/CONSTITUTIONAL: No fever or chills. No weakness. HEAD, EYES, EARS, NOSE AND THROAT: No change in vision. No ear pain or discharge. No sore throat. CARDIOVASCULAR: No chest pain or shortness of breath RESPIRATORY: No cough, wheezing, or hemoptysis. GASTROINTESTINAL: No nausea, vomiting, diarrhea or constipation. GENITOURINARY: No dysuria, frequency, or change in urination. MUSCULOSKELETAL: + BL leg swelling and pain. No neck or back pain. SKIN: No rash NEUROLOGIC: + Lightheadedness. No headache, vertigo, loss of consciousness, or change in strength/sensation. ENDOCRINE: No increased thirst. No abnormal weight change HEMATOLOGIC/LYMPHATIC: No anemia, easy bleeding, or history of blood clots. ALLERGIC/IMMUNOLOGIC: No hives or skin allergy. *Physical Exam - Vital Signs Last Vital Signs Temp Pulse Resp BP Pulse Ox 97.4 F L 75 20 147/77 100 12/16/18 23:49 12/16/18 23:49 12/16/18 23:49 12/16/18 23:49 12/16/18 23:49 - Physical Exam Comments: 12/17/18 00:56 GENERAL: Awake, alert, and fully oriented, in no acute distress HEAD: No signs of trauma, normocephalic, atraumatic EYES: PERRLA, EOMI, sclera anicteric, conjunctiva clear ENT: Auricles normal inspection, hearing grossly normal, nares patent, oropharynx clear without exudates. Moist mucosa NECK: Normal ROM, supple, no lymphadenopathy, JVD, or masses LUNGS: No distress, speaks full sentences, clear to auscultation bilaterally HEART: Regular rate and rhythm, normal S1 and S2, no murmurs, rubs or gallops, peripheral pulses normal and equal bilaterally. ABDOMEN: Soft, nontender, normoactive bowel sounds. No guarding, no rebound. No masses EXTREMITIES : BL LE edema 1+. Normal inspection, Normal range of motion. No clubbing or cyanosis. NEUROLOGICAL: Cranial nerves II through XII grossly intact. Normal speech, normal gait, no focal sensorimotor deficits SKIN: Warm, Dry, normal turgor, no rashes or lesions noted ED Treatment Course - LABORATORY CBC & Chemistry Diagram: 12/17/18 01:59 12/17/18 01:59 Medical Decision Making - Medical Decision Making 12/17/18 00:56 48 yo F with h/o HTN, HLD, poorly controlled IDDM, CAD, MO, Peripheral neuropathy, chronic back pain, OA, PTSD, Bipolar dz., COPD who p/w hyperglycemia. Vitals wnl, AF, A&Ox3. Physical exam unremarkable. Lungs CTA. Low suspicion fluid/volume overload. Will assess for hyperglycemia, DKA, electrolyte abnml, metabolic and toxic derangements, acid base disturbances, infection. 12/17/18 01:53 Ed Course: 12/17/18 04:28 Laboratory Tests 12/17/18 12/17/18 01:59 01:59 WBC 10.0 Hgb 11.0 Hct 33.9 Plt Count 236 D Sodium 139 Potassium 4.0 BUN 9.3 Creatinine 0.9 Random Glucose 550 H* CBC unremarkable CMP: unremarkable, BS 550 Repeat BS following NS 2L, Insulin 6 U Stable for d/c with return precautions *DC/Admit/Observation/Transfer Diagnosis at time of Disposition: Hyperglycemia - Discharge Dispostion Condition at time of disposition: Stable Decision to Admit order: No - Referrals Referrals: Efe Rich MD [Primary Care Provider] - - Patient Instructions Printed Discharge Instructions: DI for Hyperglycemia -- Adult Additional Instructions: Please return to the emergency department with any new or worsening symptoms or concerns. Please follow up with your primary care physician within 72 hours. Take Insulin daily as prescribed . - Post Discharge Activity
[2018-12-17 02:13] LABS: BASO % 1.3 % (0-2.0); EOS % 4.6 % (0-4.5); HEMATOCRIT 33.9 % (32.4-45.2); LYMPH % 32.3 % (8-40); MCH 29.5 pg (25.7-33.7); MCHC 32.4 g/dl (32.0-36.0); MONO % 6.9 % (3.8-10.2); NEUT % 54.9 % (42.8-82.8); PLATELET COUNT 236 K/MM3 (134-434); RBC 3.72 M/mm3 (3.60-5.2); RDW 13.9 % (11.6-15.6)
[2018-12-17 02:39] LABS: ALBUMIN 3.6 g/dl (3.4-5.0); BILIRUBIN,TOTAL 0.2 mg/dL (0.2-1); BLOOD UREA NITROGEN 9.3 mg/dL (7-18); CALCIUM 8.7 mg/dL (8.5-10.1); CREATININE 0.9 mg/dL (0.55-1.3); N-TERMINAL BNP 241.6 pg/ml (5-125); TOT PROT 7.1 g/dl (6.4-8.2)
[2018-12-17] MEDS ORDERED: INSULIN REGULAR HUMAN 100 UNITS/ML *VIAL IVPUSH ONE (02:41)
[2018-12-17] MEDS ORDERED: SODIUM CHLORIDE 1,000 ML IV STA (02:41)
[2018-12-17] MEDS ORDERED: INSULIN REGULAR HUMAN 100 UNITS/ML *VIAL ONE (02:48)
--- NOTE | 2018-12-17 04:47 | PDOC ---
Attending Attestation - Resident Resident Name: Demarco Suggs - ED Attending Attestation I have performed the following: I have examined & evaluated the patient, The case was reviewed & discussed with the resident, I agree w/resident's findings & plan - HPI HPI: 12/17/18 04:45 48-year-old female with elevated blood sugar reading high on a home glucometer. - Physicial Exam PE: 12/17/18 04:45 Agree with resident exam - Medical Decision Making 12/17/18 04:45 48-year-old female with elevated blood sugar at home Patient had markedly elevated blood sugar of greater than 500 in the emergency department which has rapidly decreased after IV fluids and insulin Patient to be discharged home with instructions to follow-up with primary care for possible insulin administration adjustment adjustment
[2018-12-17 05:26] LABS: URINE APPEARANCE CLEAR; URINE BILIRUBIN NEGATIVE (NEGATIVE); URINE COLOR YELLOW; URINE GLUCOSE (UA) 3+ (NEGATIVE); URINE KETONE NEGATIVE (NEGATIVE); URINE LEUK ESTERASE NEGATIVE (NEGATIVE); URINE NITRITE NEGATIVE (NEGATIVE); URINE PROTEIN NEGATIVE (NEGATIVE); URINE UROBILINOGEN 0.2 mg/dL (0.2-1.0)
[2018-12-17 05:28] VITALS: BP 142/59; PULSE 67
[2018-12-17 05:33] LABS: VENOUS PC02 55.8 mmHg (41-51); VENOUS PH 7.28 (7.31-7.41); VENOUS PO2 41.7 mmHg (30-40)
== END 2018-12-17 08:24 | disposition home or self-care (01) ==
LOC: JER 22:39
PROC: 3E0337Z Introduction of Electrolytic and Water Balance Substance into Peripheral Vein, Percutaneous Approach (ICD-10-PCS; principal; 2018-12-16)
DX: E11.65 Type 2 diabetes mellitus with hyperglycemia (principal); I10 Essential (primary) hypertension; E78.5 Hyperlipidemia, unspecified; I25.10 Atherosclerotic heart disease of native coronary artery without angina pectoris; I25.2 Old myocardial infarction; G62.9 Polyneuropathy, unspecified; M19.90 Unspecified osteoarthritis, unspecified site; F43.10 Post-traumatic stress disorder, unspecified; F31.9 Bipolar disorder, unspecified; M54.9 Dorsalgia, unspecified; G89.29 Other chronic pain; J44.9 Chronic obstructive pulmonary disease, unspecified; F17.210 Nicotine dependence, cigarettes, uncomplicated; Z88.8 Allergy status to other drugs, medicaments and biological substances; Z79.82 Long term (current) use of aspirin; Z79.84 Long term (current) use of oral hypoglycemic drugs; Z79.4 Long term (current) use of insulin
CPT/HCPCS: 36415; 80053; 81003; 82009; 82803; 82962; 83880; 85025; 87086; 96360; 99282-25; J7030

== ENCOUNTER 2019-05-11 12:33 | Emergency (ER) | payer OTHER ==
[2019-05-11 12:57] VITALS: BP 118/78; PULSE 103; TEMP 97.8; BMI 19.5
--- NOTE | 2019-05-11 14:46 | PDOC ---
History of Present Illness - General Chief Complaint: Blood Pressure Problem Stated Complaint: HYPERTENSION Time Seen by Provider: 05/11/19 13:35 History Source: Patient Exam Limitations: No Limitations - History of Present Illness Initial Comments: 05/11/19 14:27 48F with a PMH of HTN, HLD, poorly controlled IDDM, CAD, SD, Peripheral neuropathy, chronic back pain, OA, PTSD, Bipolar dz., COPD who presents to the ER for evaluation of HTN. The patient states that she's been in "a lot of stress " recently and noted that her BP was elevated and her HR was "around 120". During this time, she states that it was "because she was very stressed out". She denies CP, SOB, nausea, vomiting, headache, vision changes, palpitations, numbness, tingling, weakness, abdominal pain. She states that she took her BP meds and her BP and HR came down by the time EMS came. She tried to refuse EMS but came to the hospital anyway. Past History - Past Medical History Allergies/Adverse Reactions: Allergies Allergy/AdvReac Type Severity Reaction Status Date / Time levofloxacin [From Levaquin] Allergy Intermediate Rash Verified 03/11/18 16:07 aripiprazole [From Abilify] Allergy Mild Itching Verified 03/11/18 16:07 buspirone HCl [From BuSpar] Allergy Mild Itching Verified 03/11/18 16:07 medroxyprogesterone acetate Allergy Mild Itching Verified 03/11/18 16:07 [From Provera] trazodone Allergy Mild Itching Verified 03/11/18 16:07 ziprasidone HCl [From Geodon] Allergy Mild Itching Verified 03/11/18 16:07 ziprasidone mesylate Allergy Mild Itching Verified 03/11/18 16:07 [From Geodon] losartan potassium AdvReac Severe Elevated Verified 03/11/18 16:07 [From Cozaar] Blood Pressure bupropion HCl AdvReac Verified 03/11/18 16:07 [From Wellbutrin] Home Medications: Ambulatory Orders Multivitamin [Multivitamins] 1 each PO DAILY 11/19/12 Nitroglycerin Sublingual [Nitrostat -] 0.4 mg SL PRN PRN #0 tab 02/11/13 Aspirin Coated [Ecotrin -] 81 mg PO DAILY #30 tablet.ec 09/13/13 Loratadine [Claritin -] 10 mg PO DAILY #30 09/13/13 Pantoprazole Sodium [Protonix -] 40 mg PO DAILY #30 tablet.ec 09/13/13 oxyCODONE HCL [Roxicodone -] 10 mg PO TID tablet MDD 3 06/14/16 Quetiapine Fumarate [Seroquel -] 300 tab PO HS 07/07/16 Diazepam [Valium] 5 mg PO PRN 12/28/16 Pregabalin [Lyrica -] 150 mg PO BID #10 cap MDD 2 12/29/16 Diltiazem Cd [Cardizem Cd -] 360 mg PO DAILY #30 cap 12/31/16 Atorvastatin Calcium [Lipitor] 10 mg PO AM 03/19/17 Bisacodyl [Dulcolax] 5 mg PO TID 03/19/17 Insulin Glargine,Hum.rec.anlog [Lantus Solostar PEN (NF)] 24 units SQ HS [place] Carbonate [Eskalith -] 600 mg PO HS 03/19/17 [place] Carbonate [Lithobid] 300 mg PO DAILY 03/19/17 Metformin HCl [Glucophage] 1,000 mg PO BID 03/19/17 Budesonide/Formeterol Fumarate [SYMBICORT 160/4.5mcg -] 1 inh PO DAILY 09/01/17 Clotrimazole [Clotrimazole-7] 45 gm VG DAILY #1 cream.appl 09/01/17 Quetiapine Fumarate [Seroquel] 200 tab PO DAILY 09/01/17 Mag Hydrox/Al Hydrox/Simeth [Mylanta Suspension -] 30 ml PO Q6H #1 bottle Magnesium Citrate [Citroma -] 150 ml PO BID #1 bottle 03/12/18 Polyethylene Glycol 3350 [Miralax (For Daily Use) -] 17 gm PO DAILY #1 bottle Anemia: No Asthma: Yes (Pt is on MDI) Cancer: No Cardiac Disorders: Yes (CAD, ANGINA, SD, TACHYCARDIA) CVA: No COPD: Yes CHF: Yes Dementia: No Diabetes: Yes (Type II) Dialysis: No GI Disorders: No Disorders: No HTN: Yes Hypercholesterolemia: Yes Kidney Stones: No Liver Disease: No Psychiatric Problems: Yes (anxiety,depression) Seizures: No Thyroid Disease: No - Surgical History Abdominal Surgery: Yes (1 ovary removed) Appendectomy: No Cardiac Surgery: No Cholecystectomy: No Lung Surgery: No Neurologic Surgery: No Orthopedic Surgery: Yes (right knee replacement 06/27/12 [facility],[employer] [facility] [facility]) - Reproductive History PID: No - Immunization History Immunization Up to Date: Yes (no flu) - Psycho Social/Smoking Cessation Hx Smoking Status: Yes Smoking History: Never smoked Have you smoked in the past 12 months: Yes Number of Cigarettes Smoked Daily: 14 If you are a former smoker, when did you quit?: 1 MO AGO Cigars Per Day: 0 'Breaking Loose' booklet given: 03/11/18 Hx Alcohol Use: No Drug/Substance Use Hx: No Substance Use Type: None Hx Substance Use Treatment: Yes Review of Systems - Review of Systems Able to Perform ROS?: Yes Comments:: 05/11/19 14:50 GENERAL/CONSTITUTIONAL: No fever or chills. No weakness. HEAD, EYES, EARS, NOSE AND THROAT: No change in vision. No ear pain or discharge. No sore throat. CARDIOVASCULAR: + for elevated BP. No chest pain, palpitations, or lightheadedness. RESPIRATORY: No cough, wheezing, shortness of breath, or hemoptysis. GASTROINTESTINAL: No abdominal pain, nausea, vomiting, diarrhea, or constipation. GENITOURINARY: No dysuria, frequency, hematuria, or change in urination. MUSCULOSKELETAL: No joint or muscle swelling or pain. No neck or back pain. SKIN: No rash or lesions. NEUROLOGIC: No headache, numbness, tingling, focal weakness, loss of consciousness, or change in strength/sensation. Is the patient limited Romanian proficient: No *Physical Exam - Vital Signs Last Vital Signs Temp Pulse Resp BP Pulse Ox 97.8 F 103 H 20 118/78 100 05/11/19 12:54 05/11/19 12:54 05/11/19 12:54 05/11/19 12:54 05/11/19 12:54 Medical Decision Making - Medical Decision Making 05/11/19 15:17 48F with MMP who presents to the ER for elevated BP and HR. Vitals notable for normotensive BP and slightly elevated HR. FS in field 500. Pt adamantly refused labs and refused to sign AMA because "she can't get a ride home" if she signs AMA. We discussed the risks and benefits of not having a full evaluation with bloodwork and she continued to state that she was stressed and "just wanted to go home". On attempt to reevaluate the patient, she was noted to not be in bed. ED team looked for patient without success. Pt noted to no longer be present in ED without full ED evaluation. Discharge - Discharge Information Problems reviewed: Yes Clinical Impression/Diagnosis: Anxiety, Hyperglycemia HTN (hypertension) Qualifiers: Hypertension type: unspecified Qualified Code(s): I10 - Essential (primary) hypertension Condition: Guarded Disposition: ELOPED - Admission No - Follow up/Referral - Patient Discharge Instructions - Post Discharge Activity
--- NOTE | 2019-05-14 16:16 | PDOC ---
Documentation entered by Kayley Isbell SCRIBE, acting as scribe for Kevin Saldaña MD. Kevin Saldaña MD: This documentation has been prepared by the Akilah baeza Nirvannie, SCRIBE, under my direction and personally reviewed by me in its entirety. I confirm that the documentation accurately reflects all work, treatment, procedures, and medical decision making performed by me. Attending Attestation - Resident Resident Name: Sam Freeman - ED Attending Attestation I have performed the following: I have examined & evaluated the patient, The case was reviewed & discussed with the resident, I agree w/resident's findings & plan, Exceptions are as noted - HPI HPI: 05/11/19 14:25 48 F with h/o HTN, HLD, poorly controlled IDDM, CAD, ND, Peripheral neuropathy, chronic back pain, OA, PTSD, Bipolar dz., COPD, presenting to ED for evaluation of elevated BP. Pt states that she got into an argument with her boyfriend this morning, causing her to be extremely stressed. Pt states that she checked her BP and found it to be elevated. She subsequently called 911. Pt took her home BP meds prior to arrival. En route, pt's BP was found to have improved. However, fingerstick en route measured 506. Pt states that her sugars have been running high because she is on steroids after having an allergic reaction a few days ago. Pt now denies any complaints and states she wants to go home. Denies CP/SOB. Denies N/V/D. Denies F/C. Denies PORTILLO/neck pain. - Physicial Exam PE: 05/11/19 14:31 "GENERAL: Awake, alert, and fully oriented, in no acute distress. HEAD: No signs of trauma EYES: PERRLA, EOMI, sclera anicteric, conjunctiva clear ENT: Auricles normal inspection, hearing grossly normal, nares patent, oropharynx clear without exudates. Moist mucosa NECK: Nontender, no stepoffs, Normal ROM, supple, no lymphadenopathy, JVD, or masses LUNGS: Breath sounds equal, clear to auscultation bilaterally. No wheezes, and no crackles HEART: Regular rate and rhythm, normal S1 and S2, no murmurs, rubs or gallops ABDOMEN: Soft, nontender, normoactive bowel sounds. No guarding, no rebound. No masses EXTREMITIES: Normal range of motion, no edema. No clubbing or cyanosis. No cords, erythema, or tenderness NEUROLOGICAL: Cranial nerves II through XII intact. 5/5 strength and sensation in all extremities, Normal speech, normal gait, normal cerebellar function SKIN: Warm, Dry, normal turgor, no rashes or lesions noted. - Medical Decision Making 05/11/19 14:31 48 F with elevated BP at home, now resolved after taking home meds. However, pt was found to be hyperglycemic to 500 by EMS en route. Will check labs to r/o DKA. - Labs, ketones, VBG - IVF, insulin 05/11/19 14:31 I discussed the plan with the patient, who does not wish to have any bloodwork or testing done. I explained that her elevated sugar could be a sign of DKA, a serious life-threatening condition. Pt states that her sugars are always high, and she feels completely fine. The patient is clinically sober, free from distracting injury, appears to have intact insight and judgment and reason and in my opinion has the capacity to make decisions. Upon re-evaluation, pt was not found in her stretcher. Pt was called multiple times with no response. Pt did not have IV in place.
== END 2019-05-11 14:45 | disposition left against medical advice (07) ==
LOC: JER 12:33
DX: I10 Essential (primary) hypertension (principal); F41.9 Anxiety disorder, unspecified; R73.9 Hyperglycemia, unspecified; Z88.8 Allergy status to other drugs, medicaments and biological substances; Z87.891 Personal history of nicotine dependence; E78.00 Pure hypercholesterolemia, unspecified
CPT/HCPCS: 99281-25

== ENCOUNTER 2019-06-06 01:47 | Emergency (ER) | payer OTHER ==
--- NOTE | 2019-06-06 01:59 | PDOC ---
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 put her on Imdur and lasix prior to upcoming stress test next week she is on hydralazine and cardizem already for her HTN She took Imdur today at 1800 and had one episode onbnb emesis shortly after She felt somewhat weak and lightheaded and was in and out of sleep at she woke just prior to arrival and felt lightheaded with black spots so she called EMS bp was 81/58 and she was tachycardic to the 110s The patient was started on 1 L NS her pressures are 120s/ 80s now iwth HR of 90s PE- wnl labs with hyperglycemia - Past History - Past Medical History Allergies/Adverse Reactions: Allergies Allergy/AdvReac Type Severity Reaction Status Date / Time levofloxacin [From Levaquin] Allergy Intermediate Rash Verified 05/30/19 20:54 aripiprazole [From Abilify] Allergy Mild Itching Verified 05/30/19 20:54 buspirone HCl [From BuSpar] Allergy Mild Itching Verified 05/30/19 20:54 medroxyprogesterone acetate Allergy Mild Itching Verified 05/30/19 20:54 [From Provera] trazodone Allergy Mild Itching Verified 05/30/19 20:54 ziprasidone HCl [From Geodon] Allergy Mild Itching Verified 05/30/19 20:54 ziprasidone mesylate Allergy Mild Itching Verified 05/30/19 20:54 [From Geodon] lisinopril Allergy Verified 05/30/19 20:54 losartan potassium AdvReac Severe Elevated Verified 05/30/19 20:54 [From Cozaar] Blood Pressure bupropion HCl AdvReac Verified 05/30/19 20:54 [From Wellbutrin] Home Medications: Ambulatory Orders Multivitamin [Multivitamins] 1 each PO DAILY 11/19/12 Nitroglycerin Sublingual [Nitrostat -] 0.4 mg SL PRN PRN #0 tab 02/11/13 Aspirin Coated [Ecotrin -] 81 mg PO DAILY #30 tablet.ec 09/13/13 Loratadine [Claritin -] 10 mg PO DAILY #30 09/13/13 Pantoprazole Sodium [Protonix -] 40 mg PO DAILY #30 tablet.ec 09/13/13 oxyCODONE HCL [Roxicodone -] 10 mg PO TID tablet MDD 3 06/14/16 Quetiapine Fumarate [Seroquel -] 300 tab PO HS 07/07/16 Diazepam [Valium] 5 mg PO PRN 12/28/16 Pregabalin [Lyrica -] 150 mg PO BID #10 cap MDD 2 12/29/16 Diltiazem Cd [Cardizem Cd -] 360 mg PO DAILY #30 cap 12/31/16 Atorvastatin Calcium [Lipitor] 10 mg PO AM 03/19/17 Bisacodyl [Dulcolax] 5 mg PO TID 03/19/17 Insulin Glargine,Hum.rec.anlog [Lantus Solostar PEN (NF)] 24 units SQ HS [place] Carbonate [Eskalith -] 600 mg PO HS 03/19/17 [place] Carbonate [Lithobid] 300 mg PO DAILY 03/19/17 Metformin HCl [Glucophage] 1,000 mg PO BID 03/19/17 Budesonide/Formeterol Fumarate [SYMBICORT 160/4.5mcg -] 1 inh PO DAILY 09/01/17 Clotrimazole [Clotrimazole-7] 45 gm VG DAILY #1 cream.appl 09/01/17 Quetiapine Fumarate [Seroquel] 200 tab PO DAILY 09/01/17 Mag Hydrox/Al Hydrox/Simeth [Mylanta Suspension -] 30 ml PO Q6H #1 bottle Magnesium Citrate [Citroma -] 150 ml PO BID #1 bottle 03/12/18 Polyethylene Glycol 3350 [Miralax (For Daily Use) -] 17 gm PO DAILY #1 bottle Anemia: No Asthma: Yes (Pt is on MDI) Cancer: No Cardiac Disorders: Yes (CAD, ANGINA, SC, TACHYCARDIA) CVA: No COPD: Yes CHF: Yes Dementia: No Diabetes: Yes (Type II) Dialysis: No GI Disorders: No Disorders: No HTN: Yes Hypercholesterolemia: Yes Kidney Stones: No Liver Disease: No Psychiatric Problems: Yes (anxiety,depression) Seizures: No Thyroid Disease: No - Surgical History Abdominal Surgery: Yes (1 ovary removed) Appendectomy: No Cardiac Surgery: No Cholecystectomy: No Lung Surgery: No Neurologic Surgery: No Orthopedic Surgery: Yes (right knee replacement 06/27/12 [facility],[employer] [facility] [facility]) - Reproductive History PID: No - Immunization History Immunization Up to Date: Yes (no flu) - Psycho Social/Smoking Cessation Hx Smoking Status: Yes Smoking History: Current every day smoker Have you smoked in the past 12 months: Yes Number of Cigarettes Smoked Daily: 14 If you are a former smoker, when did you quit?: 1 MO AGO Cigars Per Day: 0 'Breaking Loose' booklet given: 03/11/18 Hx Alcohol Use: No Drug/Substance Use Hx: No Substance Use Type: None Hx Substance Use Treatment: Yes ED Treatment Course - LABORATORY CBC & Chemistry Diagram: 06/06/19 03:00 06/06/19 03:00 Discharge - Discharge Information Problems reviewed: Yes Clinical Impression/Diagnosis: Hypotension, Hyperglycemia Condition: Stable Disposition: HOME - Admission No - Follow up/Referral Referrals: Avelina Rich [Non Staff, Medical] - - Patient Discharge Instructions Patient Printed Discharge Instructions: DI for Hypotension, DI for Hyperglycemia -- Adult Additional Instructions: You were seen in the ER for low blood pressure Your labs were within normal except for an elevated blood sugar. Please keep up on your diabetes regimen Stop taking your new medications until you can be seen by your Livestock Auctioneer or Family Doctor Return to the ER if you develop weakness, lightheadedness, loss of consciousness , or any other concerning symptoms. - Post Discharge Activity
[2019-06-06 03:36] LABS: URINE APPEARANCE CLEAR; URINE BILIRUBIN NEGATIVE (NEGATIVE); URINE COLOR YELLOW; URINE GLUCOSE (UA) 3+ (NEGATIVE); URINE KETONE NEGATIVE (NEGATIVE); URINE LEUK ESTERASE NEGATIVE (NEGATIVE); URINE NITRITE NEGATIVE (NEGATIVE); URINE PROTEIN TRACE (NEGATIVE); URINE UROBILINOGEN 0.2 mg/dL (0.2-1.0)
[2019-06-06 03:38] LABS: BASO % 0.2 % (0-2.0); EOS % 0.3 % (0-4.5); HEMATOCRIT 31.8 % (32.4-45.2); HEMOGLOBIN 10.7 GM/dL (10.7-15.3); LYMPH % 11.5 % (8-40); MCH 29.7 pg (25.7-33.7); MCHC 33.6 g/dl (32.0-36.0); MEAN CELL VOLUME 88.4 fl (80-96); MEAN PLT VOLUME 8.3 fl (7.5-11.1); PLATELET COUNT 250 K/MM3 (134-434); RDW 14.2 % (11.6-15.6); WHITE BLOOD COUNT 8.5 K/mm3 (4.0-10.0)
[2019-06-06 03:59] LABS: ALBUMIN 3.1 g/dl (3.4-5.0); BILIRUBIN,TOTAL 0.2 mg/dL (0.2-1); CALCIUM 8.7 mg/dL (8.5-10.1); CREATININE 0.9 mg/dL (0.55-1.3); POTASSIUM 4.2 mmol/L (3.5-5.1); TOT PROT 6.7 g/dl (6.4-8.2)
[2019-06-06] MEDS ORDERED: SODIUM CHLORIDE 1,000 ML IV SCH (04:00)
[2019-06-06 04:14] VITALS: TEMP 98; BMI 19.2
--- NOTE | 2019-06-06 04:21 | PDOC ---
Attending Attestation - Resident Resident Name: Brie Guzman - ED Attending Attestation I have performed the following: I have examined & evaluated the patient, The case was reviewed & discussed with the resident, I agree w/resident's findings & plan, Exceptions are as noted - HPI HPI: 06/06/19 07:30 See resident HPI - Physicial Exam PE: 06/06/19 07:30 Agree with resident exam - Medical Decision Making 06/06/19 07:31 Viral URI, lightheaded after new meds imdur/lasix, hypotense/tachy in triage f/u labs, ekg IVF, recheck vitals dispo per clinical course asymptomatic on re-eval BP wnl hyperglycemia, no gap repeat fsg after ivf FSG <300 DC home with cards, pcp follow up
[2019-06-06 06:00] VITALS: BP 124/68; PULSE 96
== END 2019-06-06 06:54 | disposition home or self-care (01) ==
LOC: JER 01:47
DX: I95.9 Hypotension, unspecified (principal); R73.9 Hyperglycemia, unspecified; F17.210 Nicotine dependence, cigarettes, uncomplicated; F41.8 Other specified anxiety disorders; E78.00 Pure hypercholesterolemia, unspecified; I10 Essential (primary) hypertension; I50.9 Heart failure, unspecified; J45.909 Unspecified asthma, uncomplicated
CPT/HCPCS: 36415; 71045-TC-FY; 80053; 81003; 82962; 84484; 85025; 87086; 87804; 99283-25; J7030